=== PATIENT | female | born 1945 | race Caucasian/White ===

== ENCOUNTER 2016-09-22 07:45 | Day surgery (SDC) | payer MEDICARE, BC ==
[~2016-09-22 07:45] MED LIST: KETOROLAC TROMETHAMINE 0.45% 4 DROP/0.4 ML DROPERETTE OS PRN
[2016-09-22] MEDS ORDERED: EPINEPHRINE INJ/PF 1 MG/1 ML AMPULE ONE ×2 (07:56→09:21)
[2016-09-22] MEDS ORDERED: CHONDR SU A NA/HYALUR INTRAOC KIT (SURGICARE) ONE (07:57)
[2016-09-22] MEDS ORDERED: LIDOCAINE 1% INJ-PF (10 MG/ML) 30 ML SDV ONE (07:57)
[2016-09-22] MEDS: TETRACAINE HCL 0.5% OPH SOLN 2 ML OS PRN ×3 (08:16→08:59)
[2016-09-22] MEDS: CYCLOPENTOLATE 0.2%/PHENYLEPHRINE 1% OPH SOLN 2 ML OS PRN ×3 (08:17→08:42)
[2016-09-22] MEDS: TROPICAMIDE 1% OPH SOLN 3 ML OS PRN ×3 (08:18→08:43)
[2016-09-22] MEDS: BESIFLOXACIN HCL 0.6% OPH SUSP 5 ML BOTTLE OS PRN ×4 (08:19→09:38)
[2016-09-22] MEDS ORDERED: MIDAZOLAM 2 MG/2 ML INJ ONE (08:58)
[2016-09-22] MEDS ORDERED: CHONDR SU A NA/HYALUR SOD 0.5 ML DISP.SYRIN ONE (09:23)
[2016-09-22] MEDS ORDERED: FENTANYL CITRATE INJ/PF 100 MCG/2 ML AMPUL ONE (09:25)
--- NOTE | 2016-09-22 19:44 | [facility] OPERATIVE REPORT E ---
[facility] Operative Report NAME: CEFERINO TEIXEIRA AGE: 70Y DATE OF SURGERY: ROOM: PREOPERATIVE DIAGNOSIS: CATARACT, LEFT EYE. POSTOPERATIVE DIAGNOSIS: CATARACT, LEFT EYE. OPERATION: Cataract extraction with intraocular lens implant of the left eye. SURGEON: KEITH CERDA M.D. ANESTHESIA: Topical. PROCEDURE: After obtaining appropriate consent, the patient's left eye was prepped and draped in sterile fashion as well as the surgeon in a sterile manner and cataract surgery was started. First a paracentesis blade was used to make a small side-port incision. Viscoelastic was used to inflate the anterior chamber. Next a 2.4 mm incision was made with the paracentesis blade. A continuous capsulorrhexis incision was made using a cystotome and Utrata forceps. Following this hydrodissection was carried out to make the lens fully loose and mobile and it was rotated 90 degrees. Following this, a dvhohy-svl-xovskfm technique was used to phacoemulsify the lens with a CDE of 4.16. The remaining cortex was removed with irrigation/aspiration. Provisc was instilled into the capsular bag to inflate the bag. A SN60WF 24.0 diopter lens was placed. The remaining viscoelastic material was removed with irrigation/aspiration. Following this, a 10-0 nylon suture was used to close the incision and it was found to be watertight. Vigamox was instilled in the eye and a protective shield was placed over the eye. The patient returned to the postoperative recovery in stable condition. DICTATING PHYSICIAN: KEITH CERDA M.D. [id number] PHY#: [id number] ID: [id number] JOB#: [id number] ACCT: [id number] cc:KEITH CERDA M.D. >
--- NOTE | 2016-09-22 19:48 | [facility] DISCHARGE SUMMARY E ---
[facility] Discharge Summary NAME: CEFERINO TEIXEIRA AGE: 70Y ADMITTED: 09/22/2016 DISCHARGED: FINAL DIAGNOSIS: Cataract, left eye. HOSPITAL COURSE: This is a 70-year-old female who underwent cataract extraction of the left eye. She underwent surgery because she was having halos around headlights when driving at night. She is to be on a regular diet, no bending from the waist, no heavy lifting. She is to use Besivance, Ilevro, and Durezol at 3 p.m. and 8 p.m. and sleep with a rigid shield. I will see her for 1 day postoperative tomorrow. DICTATING PHYSICIAN: KEITH CERDA M.D. [id number] PHY#: [id number] ID: [id number] JOB#: [id number] ACCT: [id number] cc:KEITH CERDA M.D. >
== END 2016-09-22 10:44 | disposition home or self-care (01) ==
LOC: SC 07:45
PROVIDERS: ATTEND Internal Medicine
PROC: 08RK3JZ Replacement of Left Lens with Synthetic Substitute, Percutaneous Approach (ICD-10-PCS; principal; 2016-09-22 09:00)
DX: H25.13 Age-related nuclear cataract, bilateral (principal); H40.033 Anatomical narrow angle, bilateral; H43.811 Vitreous degeneration, right eye; E78.00 Pure hypercholesterolemia, unspecified; I10 Essential (primary) hypertension; D64.9 Anemia, unspecified; I49.9 Cardiac arrhythmia, unspecified; E07.9 Disorder of thyroid, unspecified; K21.9 Gastro-esophageal reflux disease without esophagitis; M81.0 Age-related osteoporosis without current pathological fracture; Z79.899 Other long term (current) drug therapy; Z94.0 Kidney transplant status
CPT/HCPCS: 66984; V2632; J2250; J3490 ×3; A9270; J0171; J3010; 142

== ENCOUNTER 2016-10-13 08:56 | Day surgery (SDC) | payer MEDICARE, BC ==
[~2016-10-13 08:56] MED LIST changes: +KETOROLAC TROMETHAMINE 0.45% 4 DROP/0.4 ML DROPERETTE OD PRN; -KETOROLAC TROMETHAMINE 0.45% 4 DROP/0.4 ML DROPERETTE OS PRN
[2016-10-13] MEDS: TETRACAINE HCL 0.5% OPH SOLN 2 ML OD PRN ×4 (09:07→09:40)
[2016-10-13] MEDS: TROPICAMIDE 1% OPH SOLN 3 ML OD PRN ×3 (09:08→09:30)
[2016-10-13] MEDS: CYCLOPENTOLATE 0.2%/PHENYLEPHRINE 1% OPH SOLN 2 ML OD PRN ×3 (09:08→09:30)
[2016-10-13] MEDS: BESIFLOXACIN HCL 0.6% OPH SUSP 5 ML BOTTLE OD PRN ×4 (09:09→10:08)
[2016-10-13] MEDS ORDERED: FENTANYL CITRATE INJ/PF 100 MCG/2 ML AMPUL ONE (09:31)
[2016-10-13] MEDS ORDERED: MIDAZOLAM 2 MG/2 ML INJ ONE (09:31)
[2016-10-13] MEDS: CHONDR SU A NA/HYALUR INTRAOC KIT (SURGICARE) ONE ×2 (09:52)
[2016-10-13] MEDS: EPINEPHRINE INJ/PF 1 MG/1 ML AMPULE ONE ×2 (09:52)
[2016-10-13] MEDS: LIDOCAINE 1% INJ-PF (10 MG/ML) 30 ML SDV ONE ×2 (09:52)
--- NOTE | 2016-10-14 07:14 | [facility] OPERATIVE REPORT E ---
[facility] Operative Report NAME: CEFERINO TEIXEIRA AGE: 70Y DATE OF SURGERY: 10/13/2016 ROOM: PREOPERATIVE DIAGNOSIS: Cataract, right eye. POSTOPERATIVE DIAGNOSIS: Cataract, right eye. OPERATION: Cataract extraction with intraocular lens implant of the right eye. SURGEON: KEITH CERDA M.D. ANESTHESIA: Topical. PROCEDURE: After obtaining appropriate consent, the patient's right eye was prepped and draped in sterile fashion as well as the surgeon in a sterile manner and cataract surgery was started. First a paracentesis blade was used to make a small side-port incision. Viscoelastic was used to inflate the anterior chamber. Next a 2.4 mm incision was made with the paracentesis blade. A continuous capsulorrhexis incision was made using a cystotome and Utrata forceps. Following this hydrodissection was carried out to make the lens fully loose and mobile and it was rotated 90 degrees. Following this, a mwygym-esi-zaiobkj technique was used to phacoemulsify the lens with a CDE of 20.64. The remaining cortex was removed with irrigation/aspiration. Provisc was instilled into the capsular bag to inflate the bag. A SN60WF, 24.0 diopter lens was placed. The remaining viscoelastic material was removed with irrigation/aspiration. Following this, a 10-0 nylon suture was used to close the incision and it was found to be watertight. Vigamox was instilled in the eye and a protective shield was placed over the eye. The patient returned to the postoperative recovery in stable condition. DICTATING PHYSICIAN: KEITH CERDA M.D. [id number] PHY#: [id number] ID: [id number] JOB#: [id number] ACCT: [id number] cc:KEITH CERDA M.D. >
--- NOTE | 2016-10-14 07:14 | [facility] DISCHARGE SUMMARY E ---
[facility] Discharge Summary NAME: CEFERINO TEIXEIRA AGE: 70Y ADMITTED: 10/13/2016 DISCHARGED: 10/13/2016 HISTORY OF PRESENT ILLNESS AND HOSPITAL COURSE: This is a 70-year-old female who underwent cataract extraction of the right eye. DIAGNOSIS: Cataract, right eye. HOSPITAL COURSE: She underwent surgery because she was having difficulty seeing words on the television. DISCHARGE INSTRUCTIONS: 1. She should be on a regular diet. 2. No bending at the waist and no heavy lifting. 3. She should use her Besivance, Ilevro, and Durezol at 3 p.m. and 8 p.m. and sleep with a rigid shield. 4. I will see her for her one-day postoperative tomorrow. DICTATING PHYSICIAN: KEITH CERDA M.D. [id number] PHY#: [id number] ID: [id number] JOB#: [id number] ACCT: [id number] cc:KEITH CERDA M.D. >
== END 2016-10-13 10:57 | disposition home or self-care (01) ==
LOC: SC 08:56
PROVIDERS: ATTEND Internal Medicine
PROC: 08RJ3JZ Replacement of Right Lens with Synthetic Substitute, Percutaneous Approach (ICD-10-PCS; principal; 2016-10-13 10:00)
DX: H25.11 Age-related nuclear cataract, right eye (principal); Z96.1 Presence of intraocular lens; K21.9 Gastro-esophageal reflux disease without esophagitis; I10 Essential (primary) hypertension; I49.9 Cardiac arrhythmia, unspecified; D64.9 Anemia, unspecified; Z79.899 Other long term (current) drug therapy
CPT/HCPCS: 66984; V2632; J2250; J3490 ×2; A9270; J0171; J3010; 142

== ENCOUNTER → 2016-11-18 | Outpatient (CLI) | payer MEDICARE, BC ==
[2016-11-18 13:39] LABS: APPEARANCE,URINE SLIGHTLY-CLOUDY; BILIRUBIN,URINE NEGATIVE (NEGATIVE); GLUCOSE, URINE NEGATIVE (NEGATIVE); KETONES,URINE NEGATIVE (NEGATIVE); LEUKOCYTE ESTERASE,URINE TRACE (NEGATIVE); NITRITE,URINE NEGATIVE (NEGATIVE); PROTEIN,URINE 100 mg/dL (NEGATIVE); URINE SPECIFIC GRAVITY 1.009; UROBILINOGEN,URINE NEGATIVE mg/dL (<2.0)
[2016-11-18 13:40] LABS: HEMATOCRIT 28.3 % (36.0-47.0); HEMOGLOBIN 9.4 g/dL (12.0-15.5); HGB HCT DIFFERENCE -0.1; MEAN CORPUSCULAR HEMOGLOBIN 31.4 pg (27.0-33.4); MEAN CORPUSCULAR HGB CONC 33.2 g/dL (32.0-36.0); MEAN CORPUSCULAR VOLUME 95 fl (80-97); RED BLOOD COUNT 2.99 10^6/uL (3.72-5.28); RED CELL DISTRIBUTION WIDTH 13.5 % (11.5-14.0); WHITE BLOOD COUNT 6.6 10^3/uL (4.0-10.5)
[2016-11-18 13:44] LABS: ALANINE AMINOTRANSFERASE 34 U/L (9-52); ALKALINE PHOSPHATASE 75 U/L (38-126); ANION GAP 13 (5-19); ASPARTATE AMINO TRANSFERASE 23 U/L (14-36); BILIRUBIN,DIRECT 0.3 mg/dL (0.0-0.4); BILIRUBIN,TOTAL 0.4 mg/dL (0.2-1.3); BLOOD UREA NITROGEN 37 mg/dL (7-20); CALCIUM 9.7 mg/dL (8.4-10.2); CARBON DIOXIDE 22 mmol/L (22-30); CHLORIDE 99 mmol/L (98-107); CREATININE RESULT 1.97 mg/dL (0.52-1.25); GLUCOSE 152 mg/dL (75-110); PHOSPHORUS 4.6 mg/dL (2.5-4.5); POTASSIUM 4.9 mmol/L (3.6-5.0); SODIUM 134.1 mmol/L (137-145); TOTAL PROTEIN 6.3 g/dL (6.3-8.2)
[2016-11-18 13:57] LABS: URINE CREATININE 138.5 mg/dL (15-278); URINE PROTEIN 171.9 mg/dL (<12)
[2016-11-18 14:15] LABS: BASOPHILS % (MANUAL) 0 % (0-2); EOSINOPHILS % (MANUAL) 1 % (0-6); LYMPHOCYTES % (MANUAL) 10 % (13-45); OVALOCYTES 1+; POIKILOCYTOSIS 1+; TOTAL CELLS COUNTED 100
[2016-11-18 14:16] LABS: HYPOCHROMASIA SLIGHT; POLYCHROMASIA SLIGHT; TOXIC GRANULATION SLIGHT
[2016-11-19 17:27] LABS: PTH INTACT 85 pg/mL (15-65)
[2016-11-21 16:38] LABS: A/G RATIO 1.1 (0.7-1.7); ALBUMIN 2 3.3 g/dL (2.9-4.4); ALPHA-1-GLOBULIN 2 0.3 g/dL (0.0-0.4); GAMMA GLOBULIN 0.7 g/dL (0.4-1.8); PROTEIN TOTAL SERUM 6.2 g/dL (6.0-8.5)
== END ==
LOC: OD 12:23
PROVIDERS: ATTEND Internal Medicine Nephrology
DX: N39.0 Urinary tract infection, site not specified (principal); Z48.22 Encounter for aftercare following kidney transplant; D64.9 Anemia, unspecified; I10 Essential (primary) hypertension
CPT/HCPCS: 36415; 80053; 81001; 82570; 82728; 83540; 83550; 83970; 84100; 84156; 84165; 85025; 87086

== ENCOUNTER → 2017-01-16 | Outpatient (CLI) | payer MEDICARE, BC ==
--- NOTE | 2017-01-16 15:46 | RADIOLOGY REPORT (SQ) ---
EXAM DESCRIPTION: BONE SURVEY COMPLETE COMPLETED DATE/TIME: 01/16/2017 2:36 pm REASON FOR STUDY: ANEMIA COMPARISON: None. TECHNIQUE: Images of the axial and proximal appendicular skeleton are obtained, along with lateral s kull and frontal chest films. LIMITATIONS: None. FINDINGS: AP CHEST: No bony findings. Lungs are clear. LATERAL SKULL: Solitary lytic lesion in the posterior skull. AP BOTH HUMERI: No worrisome bone lesions. TWO-VIEW LUMBAR SPINE: No worrisome bone lesions. TWO-VIEW THORACIC SPINE: No worrisome bone lesions. AP PELVIS: No worrisome bone lesions. AP BOTH FEMURS: No worrisome bone lesions. OTHER: No other significant finding. IMPRESSION: Solitary lytic skull lesion.
== END ==
LOC: RAD 13:59
PROVIDERS: ATTEND Internal Medicine Medical Oncology
DX: D64.9 Anemia, unspecified (principal); M89.8X8 Other specified disorders of bone, other site
CPT/HCPCS: 77075

== ENCOUNTER 2017-03-12 17:29 | Emergency (ER) | payer MEDICARE, BC ==
--- NOTE | 2017-03-12 18:04 | ER Document Report ---
ED Medical Screen (RME) - General Chief Complaint: Leg Swelling Stated Complaint: FOOT PAIN Time Seen by Provider: 03/12/17 17:42 Notes: This 71-year-old female patient comes emergency room complaining of feet and ankle swelling for the past month. She had a cadaver renal transplant in 2009. She reports the swelling comes on throughout the day and goes down during the night. She thinks it is because her kidney function is better at night and does not understand about gravity and hydrostatic pressures. Her doctor in [place] stopped her Synthroid over a month ago and she is not quite sure why. She has seen her primary care provider twice recently and has some outpatient lab work ordered prior to a visit to see Dr. Colin Henriquez next week. I have greeted and performed a rapid initial assessment of this patient. A comprehensive ED assessment and evaluation of the patient, analysis of test results and completion of the medical decision making process will be conducted by additional ED providers. TRAVEL OUTSIDE OF THE [place] IN LAST 30 DAYS: No - Related Data Allergies/Adverse Reactions: No Known Allergies Allergy (Verified 03/12/17 17:35) Past Medical History - Social History Chew tobacco use (# tins/day): No Frequency of alcohol use: None Drug Abuse: None - Past Medical History Cardiac Medical History: Reports: Hx Hypercholesterolemia, Hx Hypertension Denies: Hx Heart Attack Pulmonary Medical History: Denies: Hx Asthma Neurological Medical History: Reports: Hx Migraine. Denies: Hx Cerebrovascular Accident, Hx Seizures Renal/ Medical History: Denies: Hx Peritoneal Dialysis GI Medical History: Reports: Hx Gastroesophageal Reflux Disease, Hx Hiatal Hernia, Hx Ulcer - BLEEDING ULCER. Denies: Hx Hepatitis Psychiatric Medical History: Reports: Hx Anxiety, Hx Depression Infectious Medical History: Denies: Hx Hepatitis Past Surgical History: Reports: Hx Cholecystectomy, Hx Kidney (Renal Surgery) - kidney transplant, Hx Tubal Ligation. Denies: Hx Mastectomy, Hx Open Heart Surgery, Hx Pacemaker - Immunizations Immunizations up to date: Yes Hx Diphtheria, Pertussis, Tetanus Vaccination: No Physical Exam - Vital signs Vitals: Temp Pulse Resp BP Pulse Ox 98.9 F 69 16 189/76 H 98 03/12/17 17:35 03/12/17 17:35 03/12/17 17:35 03/12/17 17:35 03/12/17 17:35 Course - Vital Signs Vital signs: Temp Pulse Resp BP Pulse Ox 98.9 F 69 16 189/76 H 98 03/12/17 17:35 03/12/17 17:35 03/12/17 17:35 03/12/17 17:35 03/12/17 17:35
[2017-03-12 18:28] LABS: ABSOLUTE LYMPHOCYTES (AUTO) 0.6 10^3/uL (0.5-4.7); ABSOLUTE MONOCYTES (AUTO) 0.5 10^3/uL (0.1-1.4); ABSOLUTE NEUT (AUTO) 3.1 10^3/uL (1.7-8.2); BASOPHILS % (AUTO) 0.9 % (0-2); EOSINOPHILS % (AUTO) 0.3 % (0-6); HEMATOCRIT 28.4 % (36.0-47.0); HEMOGLOBIN 9.8 g/dL (12.0-15.5); LYMPHOCYTES % (AUTO) 14.8 % (13-45); MEAN CORPUSCULAR HEMOGLOBIN 32.7 pg (27.0-33.4); MEAN CORPUSCULAR HGB CONC 34.5 g/dL (32.0-36.0); MEAN CORPUSCULAR VOLUME 95 fl (80-97); MONOCYTES % (AUTO) 10.9 % (3-13); RED BLOOD COUNT 2.99 10^6/uL (3.72-5.28); RED CELL DISTRIBUTION WIDTH 13.2 % (11.5-14.0); SEGMENTED NEUTROPHILS % (AUTO) 73.1 % (42-78); WHITE BLOOD COUNT 4.2 10^3/uL (4.0-10.5)
[2017-03-12 18:33] LABS: APPEARANCE,URINE CLEAR; BILIRUBIN,URINE NEGATIVE (NEGATIVE); GLUCOSE, URINE NEGATIVE (NEGATIVE); KETONES,URINE NEGATIVE (NEGATIVE); LEUKOCYTE ESTERASE,URINE SMALL (NEGATIVE); NITRITE,URINE NEGATIVE (NEGATIVE); PROTEIN,URINE 100 mg/dL (NEGATIVE); URINE SPECIFIC GRAVITY 1.005; UROBILINOGEN,URINE NEGATIVE mg/dL (<2.0)
[2017-03-12 18:45] LABS: BLOOD UREA NITROGEN 32 mg/dL (7-20); CALCIUM 10.3 mg/dL (8.4-10.2); GLUCOSE 114 mg/dL (75-110)
[2017-03-12 18:46] LABS: ALANINE AMINOTRANSFERASE 28 U/L (9-52); ALBUMIN 4.6 g/dL (3.5-5.0); ALKALINE PHOSPHATASE 67 U/L (38-126); ANION GAP 12 (5-19); ASPARTATE AMINO TRANSFERASE 21 U/L (14-36); BILIRUBIN,DIRECT 0.3 mg/dL (0.0-0.4); BILIRUBIN,TOTAL 0.5 mg/dL (0.2-1.3); CARBON DIOXIDE 24 mmol/L (22-30); CHLORIDE 100 mmol/L (98-107); CHOLESTEROL 243.15 mg/dL (0-200); Direct HDL 60 mg/dL (>40); MAGNESIUM 1.9 mg/dL (1.6-2.3); SODIUM 136.2 mmol/L (137-145); TOTAL PROTEIN 7.1 g/dL (6.3-8.2); TRIGLYCERIDES 212 mg/dL (<150)
[2017-03-12 18:56] LABS: DIRECT LDL 126 mg/dL (<100)
[2017-03-12 18:57] LABS: VLDL CHOLESTEROL 42.4 mg/dL (10-31)
[2017-03-12 19:02] LABS: FREE T3 3.1 pg/mL (2.77-5.27)
[2017-03-12 19:15] LABS: THYROID STIMULATING HORMONE 2.78 uIU/mL (0.47-4.68)
--- NOTE | 2017-03-12 19:50 | ER Document Report ---
ED General - General Chief Complaint: Leg Swelling Stated Complaint: FOOT PAIN Time Seen by Provider: 03/12/17 17:42 Notes: Patient is a 71-year-old female with a past medical history of renal insufficiency, hypertension, hyperlipidemia, who presents with multitude of complaints. Her main concern is that she has chronic bilateral lower extremity edema that she states has been worse over the past 3-4 weeks. She has not tried anything to treat this edema. She has not noted anything seems to worsen other than standing for prolonged periods of time. She has not seen a primary care doctor regarding this concern. She also notes that she feels generally fatigued. She was diagnosed with a possible urinary tract infection and placed on ciprofloxacin but states that this has not resolved her fatigue or dysuria. She denies any fever or constitutional symptoms. No vomiting. She denies any chest pain or shortness of breath. TRAVEL OUTSIDE OF THE [place] IN LAST 30 DAYS: No - Related Data Allergies/Adverse Reactions: No Known Allergies Allergy (Verified 03/12/17 17:35) Past Medical History - General Information source: Patient - Social History Smoking Status: Never Smoker Chew tobacco use (# tins/day): No Frequency of alcohol use: None Drug Abuse: None Lives with: Family Family History: Hypertension - Past Medical History Cardiac Medical History: Reports: Hx Hypercholesterolemia, Hx Hypertension Denies: Hx Heart Attack Pulmonary Medical History: Denies: Hx Asthma Neurological Medical History: Reports: Hx Migraine. Denies: Hx Cerebrovascular Accident, Hx Seizures Renal/ Medical History: Denies: Hx Peritoneal Dialysis GI Medical History: Reports: Hx Gastroesophageal Reflux Disease, Hx Hiatal Hernia, Hx Ulcer - BLEEDING ULCER. Denies: Hx Hepatitis Psychiatric Medical History: Reports: Hx Anxiety, Hx Depression Infectious Medical History: Denies: Hx Hepatitis Past Surgical History: Reports: Hx Cholecystectomy, Hx Kidney (Renal Surgery) - kidney transplant, Hx Tubal Ligation. Denies: Hx Mastectomy, Hx Open Heart Surgery, Hx Pacemaker - Immunizations Immunizations up to date: Yes Hx Diphtheria, Pertussis, Tetanus Vaccination: No Hx Pneumococcal Vaccination: 05/22/13 Review of Systems - Review of Systems Notes: Constitutional: Negative for fever. Positive for generalized fatigue HENT: Negative for sore throat. Eyes: Negative for visual changes. Cardiovascular: Negative for chest pain. Respiratory: Negative for shortness of breath. Gastrointestinal: Negative for abdominal pain, vomiting or diarrhea. Genitourinary: Positive for dysuria. Musculoskeletal: Negative for back pain. Positive for bilateral lower extremity Skin: Negative for rash. Neurological: Negative for headaches, weakness or numbness. 10 point ROS negative except as marked above and in HPI. Physical Exam - Vital signs Vitals: Temp Pulse Resp BP Pulse Ox 98.9 F 69 16 189/76 H 98 03/12/17 17:35 03/12/17 17:35 03/12/17 17:35 03/12/17 17:35 03/12/17 17:35 Interpretation: Hypertensive Notes: PHYSICAL EXAMINATION: GENERAL: Well-appearing, well-nourished and in no acute distress. HEAD: Atraumatic, normocephalic. EYES: Pupils equal round and reactive to light, extraocular movements intact, sclera anicteric, conjunctiva are normal. ENT: nares patent, oropharynx clear without exudates. Moderately dry mucous membranes. NECK: Normal range of motion, supple without lymphadenopathy LUNGS: Breath sounds clear to auscultation bilaterally and equal. No wheezes rales or rhonchi. HEART: Regular rate and rhythm without murmurs ABDOMEN: Soft, nontender, normoactive bowel sounds. No guarding, no rebound. No masses appreciated. EXTREMITIES: Normal range of motion, 1+ pitting edema in the bilateral lower extremities that is equal and symmetric NEUROLOGICAL: No focal neurological deficits. Moves all extremities spontaneously and on command. PSYCH: Normal mood, normal affect. SKIN: Warm, Dry, normal turgor, no rashes or lesions noted. Course - Re-evaluation Re-evalutation: 03/12/17 19:47 Patient presents with multiple vague complaints that did not appear to be concerning for any acute life-threatening pathology. Vitals are within normal limits at triage and at time of discharge. Physical examination is unremarkable. Patient has tolerated oral intake without difficulty. Patient was not noted to be in distress at any point during their ER visit. At this time, based on the reassuring evaluation, I do not suspect an acute SD, pulmonary embolus, aortic dissection, acute intra-abdominal pathology, stroke, or sepsis. Patient's urinalysis does show findings consistent with an acute urinary tract infection which may be part of her generalized malaise. The urine culture has been sent. She will be started on cephalexin. Have also added on a urine creatinine and protein so the patient does not have a follow- up for laboratories as an outpatient. Will discharge with return precautions and follow-up recommendations. Verbal discharge instructions given a the bedside and opportunity for questions given. Medication warnings reviewed. Patient is in agreement with this plan and has verbalized understanding of return precautions and the need for primary care follow-up in the next 24-72 hours. - Vital Signs Vital signs: Temp Pulse Resp BP Pulse Ox 98.6 F 71 18 150/85 H 98 03/12/17 20:14 03/12/17 20:14 03/12/17 20:14 03/12/17 20:14 03/12/17 20:14 - Laboratory Result Diagrams: 03/12/17 18:10 03/12/17 18:10 Laboratory results interpreted by me: 03/12/17 03/12/17 03/12/17 18:10 18:10 18:10 RBC 2.99 L Hgb 9.8 L Hct 28.4 L Sodium 136.2 L BUN 32 H Creatinine 1.60 H Est GFR ( Amer) 39 L Est GFR (Non-Af Amer) 32 L Glucose 114 H Calcium 10.3 H Triglycerides 212 H Cholesterol 243.15 H LDL Cholesterol Direct 126 H VLDL Cholesterol 42.4 H Urine Protein 100 H Ur Leukocyte Esterase SMALL H Urine Total Protein 03/12/17 18:10 RBC Hgb Hct Sodium BUN Creatinine Est GFR ( Amer) Est GFR (Non-Af Amer) Glucose Calcium Triglycerides Cholesterol LDL Cholesterol Direct VLDL Cholesterol Urine Protein Ur Leukocyte Esterase Urine Total Protein 107.5 H Discharge - Discharge Clinical Impression: UTI (urinary tract infection), bacterial, Hyponatremia, Dehydration Condition: Good Disposition: HOME, SELF-CARE Additional Instructions: Your urine shows findings consistent with a urinary tract infection. Please take all the antibiotics as directed even if your symptoms have improved. Please follow-up with your primary care physician as needed. Return to emergency room if you develop fever >101F, persistent vomiting, become lethargic , have severe pain in your sides, or any other symptoms that are concerning to you. Prescriptions: Cephalexin Monohydrate [Keflex 500 mg Capsule] 500 mg PO Q6H 5 Days capsule Referrals: ALFONSO WELCH MD [Primary Care Provider] - Follow up as needed
[2017-03-12 20:09] LABS: URINE CREATININE 82.3 mg/dL (15-278); URINE PROTEIN 107.5 mg/dL (<12)
[2017-03-12 20:16] VITALS: BP 150/85
== END 2017-03-12 20:15 | disposition home or self-care (01) ==
LOC: ER 17:29
DX: N39.0 Urinary tract infection, site not specified (principal); B96.89 Other specified bacterial agents as the cause of diseases classified elsewhere; E87.1 Hypo-osmolality and hyponatremia; E86.0 Dehydration; M79.673 Pain in unspecified foot; M79.89 Other specified soft tissue disorders
CPT/HCPCS: 36415; 80053; 80061; 81001; 82570; 83735; 84156; 84439; 84443; 84481; 85025; 87086; 99283

== ENCOUNTER → 2017-04-20 | Outpatient (CLI) | payer MEDICARE, BC ==
[2017-04-20 09:42] LABS: ABSOLUTE EOSINOPHILS # (AUTO) 0.1 10^3/uL (0.0-0.6); ABSOLUTE LYMPHOCYTES (AUTO) 0.5 10^3/uL (0.5-4.7); ABSOLUTE MONOCYTES (AUTO) 0.6 10^3/uL (0.1-1.4); ABSOLUTE NEUT (AUTO) 3.3 10^3/uL (1.7-8.2); BASOPHILS % (AUTO) 0.6 % (0-2); EOSINOPHILS % (AUTO) 1.1 % (0-6); HEMOGLOBIN 9.8 g/dL (12.0-15.5); HGB HCT DIFFERENCE 1.4; LYMPHOCYTES % (AUTO) 11.8 % (13-45); MEAN CORPUSCULAR HEMOGLOBIN 32.8 pg (27.0-33.4); MEAN CORPUSCULAR VOLUME 94 fl (80-97); MONOCYTES % (AUTO) 13.1 % (3-13); RED BLOOD COUNT 2.98 10^6/uL (3.72-5.28); RED CELL DISTRIBUTION WIDTH 13.2 % (11.5-14.0); SEGMENTED NEUTROPHILS % (AUTO) 73.4 % (42-78); WHITE BLOOD COUNT 4.6 10^3/uL (4.0-10.5)
[2017-04-20 10:00] LABS: APPEARANCE,URINE CLEAR; BILIRUBIN,URINE NEGATIVE (NEGATIVE); GLUCOSE, URINE NEGATIVE (NEGATIVE); KETONES,URINE NEGATIVE (NEGATIVE); LEUKOCYTE ESTERASE,URINE NEGATIVE (NEGATIVE); NITRITE,URINE NEGATIVE (NEGATIVE); PROTEIN,URINE 100 mg/dL (NEGATIVE); URINE SPECIFIC GRAVITY 1.005; UROBILINOGEN,URINE NEGATIVE mg/dL (<2.0)
[2017-04-20 10:49] LABS: ANION GAP 9 (5-19); BLOOD UREA NITROGEN 26 mg/dL (7-20); CARBON DIOXIDE 25 mmol/L (22-30); CHLORIDE 100 mmol/L (98-107); CREATININE RESULT 1.43 mg/dL (0.52-1.25); GLUCOSE 85 mg/dL (75-110); POTASSIUM 5.6 mmol/L (3.6-5.0); SODIUM 134.3 mmol/L (137-145)
[2017-04-20 10:56] LABS: URINE CREATININE 59.7 mg/dL (15-278); URINE PROTEIN 108.5 mg/dL (<12)
== END ==
LOC: OD 08:26
PROVIDERS: ATTEND Internal Medicine Nephrology
DX: N18.2 Chronic kidney disease, stage 2 (mild) (principal); D64.9 Anemia, unspecified; R80.9 Proteinuria, unspecified
CPT/HCPCS: 36415; 80048; 80197; 81001; 82570; 82728; 83540; 83550; 84156; 85025

== ENCOUNTER → 2017-04-24 | Outpatient (CLI) | payer MEDICARE, BC | LOC: OD 10:03 | PROVIDERS: ATTEND Physician Assistant Medical | DX: E87.5 Hyperkalemia (principal) | CPT/HCPCS: 36415; 84132 ==

== ENCOUNTER → 2017-05-01 | Outpatient (CLI) | payer MEDICARE, BC ==
[2017-05-01 11:16] LABS: ABSOLUTE LYMPHOCYTES (AUTO) 0.4 10^3/uL (0.5-4.7); ABSOLUTE MONOCYTES (AUTO) 0.4 10^3/uL (0.1-1.4); ABSOLUTE NEUT (AUTO) 3.7 10^3/uL (1.7-8.2); BASOPHILS % (AUTO) 0.5 % (0-2); EOSINOPHILS % (AUTO) 0.9 % (0-6); HEMATOCRIT 28.9 % (36.0-47.0); HEMOGLOBIN 9.8 g/dL (12.0-15.5); HGB HCT DIFFERENCE 0.5; LYMPHOCYTES % (AUTO) 8.8 % (13-45); MEAN CORPUSCULAR HEMOGLOBIN 32.3 pg (27.0-33.4); MEAN CORPUSCULAR HGB CONC 34.1 g/dL (32.0-36.0); MEAN CORPUSCULAR VOLUME 95 fl (80-97); MONOCYTES % (AUTO) 8.5 % (3-13); RED BLOOD COUNT 3.04 10^6/uL (3.72-5.28); RED CELL DISTRIBUTION WIDTH 13.5 % (11.5-14.0); SEGMENTED NEUTROPHILS % (AUTO) 81.3 % (42-78); WHITE BLOOD COUNT 4.6 10^3/uL (4.0-10.5)
[2017-05-01 11:43] LABS: ALANINE AMINOTRANSFERASE 26 U/L (9-52); ALBUMIN 4.4 g/dL (3.5-5.0); ALKALINE PHOSPHATASE 65 U/L (38-126); ANION GAP 11 (5-19); ASPARTATE AMINO TRANSFERASE 21 U/L (14-36); BILIRUBIN,DIRECT 0.4 mg/dL (0.0-0.4); BILIRUBIN,TOTAL 0.7 mg/dL (0.2-1.3); BLOOD UREA NITROGEN 31 mg/dL (7-20); CALCIUM 10.5 mg/dL (8.4-10.2); CARBON DIOXIDE 25 mmol/L (22-30); CHLORIDE 101 mmol/L (98-107); CHOLESTEROL 243.53 mg/dL (0-200); CREATININE RESULT 1.49 mg/dL (0.52-1.25); Direct HDL 57 mg/dL (>40); GLUCOSE 107 mg/dL (75-110); POTASSIUM 4.9 mmol/L (3.6-5.0); SODIUM 137.1 mmol/L (137-145); TOTAL PROTEIN 6.7 g/dL (6.3-8.2); TRIGLYCERIDES 224 mg/dL (<150)
[2017-05-01 11:54] LABS: DIRECT LDL 128 mg/dL (<100)
[2017-05-01 12:03] LABS: VLDL CHOLESTEROL 44.8 mg/dL (10-31)
[2017-05-01 12:12] LABS: THYROID STIMULATING HORMONE 3.93 uIU/mL (0.47-4.68)
== END ==
LOC: OD 10:37
PROVIDERS: ATTEND Physician Assistant
DX: E03.9 Hypothyroidism, unspecified (principal); E78.2 Mixed hyperlipidemia; D63.1 Anemia in chronic kidney disease
CPT/HCPCS: 36415; 80053; 80061; 84439; 84443; 85025

== ENCOUNTER 2017-07-02 16:33 | Emergency (ER) | payer MEDICARE, BC ==
--- NOTE | 2017-07-02 17:26 | ER Document Report ---
ED Medical Screen (RME) - General Chief Complaint: Fever Stated Complaint: FEVER Time Seen by Provider: 07/02/17 17:25 Mode of Arrival: Ambulatory Information source: Patient TRAVEL OUTSIDE OF THE [place] IN LAST 30 DAYS: No - HPI Patient complains to provider of: fever Onset: Yesterday - pt with c/o fever and not feeling well - Related Data Allergies/Adverse Reactions: No Known Allergies Allergy (Verified 07/02/17 16:34) Past Medical History - Past Medical History Cardiac Medical History: Reports: Hx Hypercholesterolemia, Hx Hypertension Denies: Hx Heart Attack Pulmonary Medical History: Denies: Hx Asthma Neurological Medical History: Reports: Hx Migraine. Denies: Hx Cerebrovascular Accident, Hx Seizures Renal/ Medical History: Denies: Hx Peritoneal Dialysis GI Medical History: Reports: Hx Gastroesophageal Reflux Disease, Hx Hiatal Hernia, Hx Ulcer - BLEEDING ULCER. Denies: Hx Hepatitis Psychiatric Medical History: Reports: Hx Anxiety, Hx Depression Infectious Medical History: Denies: Hx Hepatitis Past Surgical History: Reports: Hx Cholecystectomy, Hx Kidney (Renal Surgery) - kidney transplant, Hx Tubal Ligation. Denies: Hx Mastectomy, Hx Open Heart Surgery, Hx Pacemaker - Immunizations Immunizations up to date: Yes Hx Diphtheria, Pertussis, Tetanus Vaccination: No Physical Exam - Vital signs Vitals: Temp Pulse Resp BP Pulse Ox 99.2 F 80 24 H 169/70 H 97 07/02/17 16:40 07/02/17 16:40 07/02/17 16:40 07/02/17 16:40 07/02/17 16:40 Course - Vital Signs Vital signs: Temp Pulse Resp BP Pulse Ox 99.2 F 80 24 H 169/70 H 97 07/02/17 16:40 07/02/17 16:40 07/02/17 16:40 07/02/17 16:40 07/02/17 16:40
[2017-07-02 18:14] LABS: ABSOLUTE LYMPHOCYTES (AUTO) 0.3 10^3/uL (0.5-4.7); ABSOLUTE MONOCYTES (AUTO) 0.5 10^3/uL (0.1-1.4); ABSOLUTE NEUT (AUTO) 4.4 10^3/uL (1.7-8.2); BASOPHILS % (AUTO) 0.4 % (0-2); HEMATOCRIT 27.8 % (36.0-47.0); HEMOGLOBIN 9.4 g/dL (12.0-15.5); LYMPHOCYTES % (AUTO) 6.2 % (13-45); MEAN CORPUSCULAR HEMOGLOBIN 31.6 pg (27.0-33.4); MEAN CORPUSCULAR HGB CONC 33.9 g/dL (32.0-36.0); MEAN CORPUSCULAR VOLUME 93 fl (80-97); MONOCYTES % (AUTO) 8.9 % (3-13); PLATELET COUNT 312 10^3/uL (150-450); RED BLOOD COUNT 2.99 10^6/uL (3.72-5.28); RED CELL DISTRIBUTION WIDTH 13.3 % (11.5-14.0); SEGMENTED NEUTROPHILS % (AUTO) 84.5 % (42-78); TOTAL CELLS COUNTED % (AUTO) 100 %; WHITE BLOOD COUNT 5.3 10^3/uL (4.0-10.5)
[2017-07-02 18:19] LABS: APPEARANCE,URINE SLIGHTLY-CLOUDY; BILIRUBIN,URINE NEGATIVE (NEGATIVE); COLOR,URINE YELLOW; GLUCOSE, URINE 50 mg/dL (NEGATIVE); KETONES,URINE NEGATIVE (NEGATIVE); LEUKOCYTE ESTERASE,URINE SMALL (NEGATIVE); NITRITE,URINE NEGATIVE (NEGATIVE); PROTEIN,URINE >=500 mg/dL (NEGATIVE); URINE SPECIFIC GRAVITY 1.013; UROBILINOGEN,URINE NEGATIVE mg/dL (<2.0)
[2017-07-02 18:30] LABS: ALANINE AMINOTRANSFERASE 23 U/L (9-52); ALBUMIN 4.2 g/dL (3.5-5.0); ALKALINE PHOSPHATASE 76 U/L (38-126); ANION GAP 11 (5-19); ASPARTATE AMINO TRANSFERASE 19 U/L (14-36); BILIRUBIN,DIRECT 0.1 mg/dL (0.0-0.4); BILIRUBIN,TOTAL 0.3 mg/dL (0.2-1.3); BLOOD UREA NITROGEN 23 mg/dL (7-20); CALCIUM 9.9 mg/dL (8.4-10.2); CARBON DIOXIDE 24 mmol/L (22-30); CHLORIDE 98 mmol/L (98-107); GLUCOSE 154 mg/dL (75-110); POTASSIUM 4.6 mmol/L (3.6-5.0); SODIUM 132.5 mmol/L (137-145); TOTAL PROTEIN 6.1 g/dL (6.3-8.2)
--- NOTE | 2017-07-02 18:30 | RADIOLOGY REPORT (SQ) ---
EXAM DESCRIPTION: CHEST PA/LAT COMPLETED DATE/TIME: 07/02/2017 6:21 pm REASON FOR STUDY: fever COMPARISON: 03/06/2015 EXAM PARAMETERS: NUMBER OF VIEWS: two views TECHNIQUE: Digital Frontal and Lateral radiographic views of the chest acquired. RADIATION DOSE: NA LIMITATIONS: none FINDINGS: LUNGS AND PLEURA: No opacities, masses or pneumothorax. No pleural effusion. MEDIASTINUM AND HILAR STRUCTURES: No masses or contour abnormalities. HEART AND VASCULAR STRUCTURES: Heart normal size. No evidence for failure. BONES: No acute findings. HARDWARE: None in the chest. OTHER: No other significant finding. IMPRESSION: NO SIGNIFICANT RADIOGRAPHIC FINDING IN THE CHEST. TECHNICAL DOCUMENTATION: JOB ID: [id number] [employer]- All Rights Reserved
--- NOTE | 2017-07-02 19:16 | ER Document Report ---
ED General - General Mode of Arrival: Ambulatory Information source: Patient TRAVEL OUTSIDE OF THE [place] IN LAST 30 DAYS: No <WILLIE THACKER - Last Filed: 07/02/17 23:41> <JOSE JEFFREY - Last Filed: 07/02/17 23:51> - General Chief Complaint: Fever Stated Complaint: FEVER Time Seen by Provider: 07/02/17 17:25 Notes: Patient is a 71-year-old female who presents to the emergency department today with complaints of "fevers off and on for 1 month". Patient states her fevers are generally in the 99 F range, never getting above 100.4 F. Patient is status post kidney transplant in 1998 and refers to her "renal function tests" several times. Patient mentions that she has been to several doctors recently and no one has checked her renal function, stating the last time she had it checked was one month ago. Patient was started on 250 mg of Cipro twice daily yesterday by urgent care for an unknown bacterial infection. Patient admits to intermittent chills. (WILLIE THACKER) - Related Data Allergies/Adverse Reactions: No Known Allergies Allergy (Verified 07/02/17 16:34) Past Medical History - General Information source: Patient - Social History Smoking Status: Never Smoker Cigarette use (# per day): No Chew tobacco use (# tins/day): No Frequency of alcohol use: None Drug Abuse: None Lives with: Family Family History: Hypertension Patient has suicidal ideation: No Patient has homicidal ideation: No - Past Medical History Cardiac Medical History: Reports: Hx Hypercholesterolemia, Hx Hypertension Neurological Medical History: Reports: Hx Migraine GI Medical History: Reports: Hx Gastroesophageal Reflux Disease, Hx Hiatal Hernia, Hx Ulcer - BLEEDING ULCER Psychiatric Medical History: Reports: Hx Anxiety, Hx Depression Past Surgical History: Reports: Hx Cholecystectomy, Hx Kidney (Renal Surgery) - kidney transplant, Hx Tubal Ligation - Immunizations Immunizations up to date: Yes Hx Diphtheria, Pertussis, Tetanus Vaccination: No Hx Pneumococcal Vaccination: 05/22/13 <WILLIE THACKER - Last Filed: 07/02/17 23:41> Review of Systems - Review of Systems Constitutional: See HPI, Chills, Fever EENT: No symptoms reported Cardiovascular: No symptoms reported Respiratory: No symptoms reported Gastrointestinal: No symptoms reported Genitourinary: No symptoms reported Female Genitourinary: No symptoms reported Musculoskeletal: No symptoms reported Skin: No symptoms reported Hematologic/Lymphatic: No symptoms reported Neurological/Psychological: No symptoms reported <WILLIE THACKER - Last Filed: 07/02/17 23:41> Physical Exam <WILLIE THACKER - Last Filed: 07/02/17 23:41> <JOSE JEFFREY - Last Filed: 07/02/17 23:51> - Vital signs Vitals: Temp Pulse Resp BP Pulse Ox 99.2 F 80 24 H 169/70 H 97 07/02/17 16:40 07/02/17 16:40 07/02/17 16:40 07/02/17 16:40 07/02/17 16:40 - Notes Notes: PHYSICAL EXAM GENERAL: Alert, interacts well. No acute distress. HEAD: Normocephalic, atraumatic. EYES: Pupils equal, round, and reactive to light. Extraocular movements intact. Right eye conjunctival injection. ENT: Oral mucosa moist, tongue midline. NECK: Full range of motion. Supple. Trachea midline. LUNGS: Clear to auscultation bilaterally, no wheezes, rales, or rhonchi. No respiratory distress. HEART: Regular rate and rhythm. No murmurs, gallops, or rubs. ABDOMEN: Soft, non-tender. Non-distended. Bowel sounds present in all 4 quadrants. EXTREMITIES: Moves all 4 extremities spontaneously. Trace edema, radial and dorsalis pedis pulses 2/4 bilaterally. No cyanosis. NEUROLOGICAL: Alert and oriented x3. Normal speech. PSYCH: Normal affect, normal mood. SKIN: Warm, dry, normal turgor. No rashes or lesions noted. (WILLIE THACKER) Course - Laboratory Result Diagrams: 07/02/17 18:02 07/02/17 18:02 <WILLIE THACKER - Last Filed: 07/02/17 23:41> - Laboratory Result Diagrams: 07/02/17 18:02 07/02/17 18:02 <JOSE JEFFREY - Last Filed: 07/02/17 23:51> - Re-evaluation Re-evalutation: 07/02/17 19:17 CBC shows chronic anemia with hemoglobin 9.4, no left shift, CMP shows chronic renal failure not significantly changed from blood work performed in May, urinalysis shows small leukocyte esterase, 36 WBCs, 1 squamous epithelial cell and trace bacteria. Patient is already on ciprofloxacin from urgent care. I do not actually think this represents infection however I will leave her on her current antibiotic, do not recommend adding any other antibiotics and this urine will be sent for culture. Chest x-ray is unremarkable. Patient was provided with a copy of her blood work and discharged to home. 07/02/17 19:18 Of note the patient has never had an actual fever over the past month. She has never exceeded 100.4. 07/02/17 23:51 Denies dysuria or flank pain. (JOSE JEFFREY) - Vital Signs Vital signs: Temp Pulse Resp BP Pulse Ox 99.2 F 77 18 183/79 H 98 07/02/17 16:40 07/02/17 19:36 07/02/17 19:36 07/02/17 19:36 07/02/17 19:36 - Laboratory Laboratory results interpreted by me: 07/02/17 07/02/17 07/02/17 18:02 18:02 18:02 RBC 2.99 L Hgb 9.4 L Hct 27.8 L Seg Neutrophils % 84.5 H Lymphocytes % 6.2 L Absolute Lymphocytes 0.3 L Sodium 132.5 L BUN 23 H Creatinine 2.11 H Est GFR ( Amer) 28 L Est GFR (Non-Af Amer) 23 L Glucose 154 H Total Protein 6.1 L Urine Protein >=500 H Urine Glucose (UA) 50 H Ur Leukocyte Esterase SMALL H Urine Ascorbic Acid 20 H Discharge <WILLIE THACKER - Last Filed: 07/02/17 23:41> <JOSE JEFFREY - Last Filed: 07/02/17 23:51> - Discharge Clinical Impression: CKD (chronic kidney disease) stage 4, GFR 15-29 ml/min HTN (hypertension) Qualifiers: Hypertension type: renovascular hypertension Qualified Code(s): I15.0 - Renovascular hypertension Condition: Stable Disposition: HOME, SELF-CARE Scribe Attestation: 07/02/17 23:51 I personally performed the services described in the documentation, reviewed and edited the documentation which was dictated to the scribe in my presence, and it accurately records my words and actions. (JOSE JEFFREY) Scribe Documentation - Scribe Written by Scribe:: Cecilia Briseno, 07/02/2017 1936 acting as scribe for :: [place] <WILLIE THACKER - Last Filed: 07/02/17 23:41>
[2017-07-02 19:37] VITALS: BP 183/79
== END 2017-07-02 19:37 | disposition home or self-care (01) ==
LOC: ER 16:33
DX: A49.9 Bacterial infection, unspecified (principal); R50.9 Fever, unspecified; I12.9 Hypertensive chronic kidney disease with stage 1 through stage 4 chronic kidney disease, or unspecified chronic kidney disease; N18.3 Chronic kidney disease, stage 3 (moderate); Z94.0 Kidney transplant status
CPT/HCPCS: 36415; 71046; 80053; 81001; 85025; 87086; 87088; 87186; 99284

== ENCOUNTER → 2017-07-21 | Outpatient (CLI) | payer MEDICARE, BC ==
[2017-07-21 10:07] LABS: APPEARANCE,URINE CLEAR; BILIRUBIN,URINE NEGATIVE (NEGATIVE); COLOR,URINE STRAW; GLUCOSE, URINE NEGATIVE (NEGATIVE); KETONES,URINE NEGATIVE (NEGATIVE); LEUKOCYTE ESTERASE,URINE TRACE (NEGATIVE); NITRITE,URINE NEGATIVE (NEGATIVE); PROTEIN,URINE 100 mg/dL (NEGATIVE); URINE SPECIFIC GRAVITY 1.005; UROBILINOGEN,URINE NEGATIVE mg/dL (<2.0)
[2017-07-21 10:08] LABS: ABSOLUTE LYMPHOCYTES (AUTO) 0.5 10^3/uL (0.5-4.7); ABSOLUTE MONOCYTES (AUTO) 0.6 10^3/uL (0.1-1.4); ABSOLUTE NEUT (AUTO) 3.1 10^3/uL (1.7-8.2); BASOPHILS % (AUTO) 0.7 % (0-2); EOSINOPHILS % (AUTO) 1.1 % (0-6); HEMATOCRIT 28.4 % (36.0-47.0); HEMOGLOBIN 9.7 g/dL (12.0-15.5); LYMPHOCYTES % (AUTO) 12.5 % (13-45); MEAN CORPUSCULAR HEMOGLOBIN 31.7 pg (27.0-33.4); MEAN CORPUSCULAR HGB CONC 34.1 g/dL (32.0-36.0); MEAN CORPUSCULAR VOLUME 93 fl (80-97); MONOCYTES % (AUTO) 13.8 % (3-13); PLATELET COUNT 223 10^3/uL (150-450); RED BLOOD COUNT 3.06 10^6/uL (3.72-5.28); RED CELL DISTRIBUTION WIDTH 13.7 % (11.5-14.0); SEGMENTED NEUTROPHILS % (AUTO) 71.9 % (42-78); TOTAL CELLS COUNTED % (AUTO) 100 %; WHITE BLOOD COUNT 4.3 10^3/uL (4.0-10.5)
[2017-07-21 10:41] LABS: ALANINE AMINOTRANSFERASE 25 U/L (9-52); ALBUMIN 3.7 g/dL (3.5-5.0); ALKALINE PHOSPHATASE 55 U/L (38-126); ANION GAP 8 (5-19); ASPARTATE AMINO TRANSFERASE 18 U/L (14-36); BILIRUBIN,DIRECT 0.2 mg/dL (0.0-0.4); BILIRUBIN,TOTAL 0.5 mg/dL (0.2-1.3); BLOOD UREA NITROGEN 21 mg/dL (7-20); CALCIUM 9.9 mg/dL (8.4-10.2); CARBON DIOXIDE 25 mmol/L (22-30); CHLORIDE 100 mmol/L (98-107); GLUCOSE 93 mg/dL (75-110); POTASSIUM 5.3 mmol/L (3.6-5.0); SODIUM 133.4 mmol/L (137-145); TOTAL PROTEIN 5.7 g/dL (6.3-8.2)
[2017-07-21 11:01] LABS: URINE CREATININE 71.5 mg/dL (15-278)
[2017-07-21 11:10] LABS: UR PRO/CREAT RATIO RESULT 4.2 mg/mg (0.0-0.2); URINE PROTEIN 303.3 mg/dL (<12)
== END ==
LOC: OD 09:20
PROVIDERS: ATTEND Internal Medicine Nephrology
DX: N18.3 Chronic kidney disease, stage 3 (moderate) (principal); R80.9 Proteinuria, unspecified; E87.5 Hyperkalemia; D64.9 Anemia, unspecified
CPT/HCPCS: 36415; 80053; 81001; 82570; 84156; 85025

== ENCOUNTER → 2017-09-26 | Outpatient (CLI) | payer MEDICARE, BC ==
[2017-09-26 11:51] LABS: ABSOLUTE EOSINOPHILS # (AUTO) 0.1 10^3/uL (0.0-0.6); ABSOLUTE LYMPHOCYTES (AUTO) 0.7 10^3/uL (0.5-4.7); ABSOLUTE MONOCYTES (AUTO) 0.6 10^3/uL (0.1-1.4); ABSOLUTE NEUT (AUTO) 3.4 10^3/uL (1.7-8.2); BASOPHILS % (AUTO) 0.6 % (0-2); EOSINOPHILS % (AUTO) 1.4 % (0-6); HEMATOCRIT 29.4 % (36.0-47.0); HEMOGLOBIN 9.9 g/dL (12.0-15.5); LYMPHOCYTES % (AUTO) 14.4 % (13-45); MEAN CORPUSCULAR HEMOGLOBIN 31.4 pg (27.0-33.4); MEAN CORPUSCULAR HGB CONC 33.6 g/dL (32.0-36.0); MEAN CORPUSCULAR VOLUME 93 fl (80-97); MONOCYTES % (AUTO) 12.5 % (3-13); PLATELET COUNT 215 10^3/uL (150-450); RED BLOOD COUNT 3.14 10^6/uL (3.72-5.28); RED CELL DISTRIBUTION WIDTH 14.2 % (11.5-14.0); SEGMENTED NEUTROPHILS % (AUTO) 71.1 % (42-78); TOTAL CELLS COUNTED % (AUTO) 100 %; WHITE BLOOD COUNT 4.8 10^3/uL (4.0-10.5)
[2017-09-26 11:55] LABS: APPEARANCE,URINE CLEAR; BILIRUBIN,URINE NEGATIVE (NEGATIVE); COLOR,URINE YELLOW; GLUCOSE, URINE NEGATIVE (NEGATIVE); KETONES,URINE NEGATIVE (NEGATIVE); LEUKOCYTE ESTERASE,URINE TRACE (NEGATIVE); NITRITE,URINE NEGATIVE (NEGATIVE); PROTEIN,URINE >=500 mg/dL (NEGATIVE); URINE SPECIFIC GRAVITY 1.007; UROBILINOGEN,URINE NEGATIVE mg/dL (<2.0)
[2017-09-26 12:07] LABS: URINE CREATININE 49.9 mg/dL (15-278)
[2017-09-26 12:07] LABS: ALANINE AMINOTRANSFERASE 21 U/L (9-52); ALBUMIN 3.9 g/dL (3.5-5.0); ALKALINE PHOSPHATASE 64 U/L (38-126); ANION GAP 10 (5-19); ASPARTATE AMINO TRANSFERASE 19 U/L (14-36); BILIRUBIN,DIRECT 0.2 mg/dL (0.0-0.4); BILIRUBIN,TOTAL 0.5 mg/dL (0.2-1.3); BLOOD UREA NITROGEN 30 mg/dL (7-20); CALCIUM 10.1 mg/dL (8.4-10.2); CARBON DIOXIDE 25 mmol/L (22-30); CHLORIDE 102 mmol/L (98-107); GLUCOSE 90 mg/dL (75-110); PHOSPHORUS 4.2 mg/dL (2.5-4.5); POTASSIUM 5.1 mmol/L (3.6-5.0); SODIUM 136.7 mmol/L (137-145); TOTAL PROTEIN 6.3 g/dL (6.3-8.2)
[2017-09-26 12:18] LABS: UR PRO/CREAT RATIO RESULT 6.9 mg/mg (0.0-0.2)
== END ==
LOC: OD 10:59
PROVIDERS: ATTEND Internal Medicine Nephrology
DX: I12.9 Hypertensive chronic kidney disease with stage 1 through stage 4 chronic kidney disease, or unspecified chronic kidney disease (principal); N18.3 Chronic kidney disease, stage 3 (moderate); R80.9 Proteinuria, unspecified; E87.5 Hyperkalemia
CPT/HCPCS: 36415; 80053; 80197; 81001; 82570; 83970; 84100; 84156; 85025

== ENCOUNTER 2017-11-19 14:06 | Inpatient (IN) | payer MEDICARE, BC ==
--- NOTE | 2017-11-19 14:45 | ER Document Report ---
ED General - General Chief Complaint: Fever Stated Complaint: FEVER Time Seen by Provider: 11/19/17 14:25 Mode of Arrival: Ambulatory Information source: Patient Notes: 72-year-old female presents emergency department with complaints of having slurred speech. She states that it started 3 days ago. She's also had difficulty ambulating secondary to right lower extremity weakness. Patient states that she is on aspirin but denies any blood thinners. Patient denies a previous history of stroke or TIA. Patient denies any chest pain, shortness of breath, abdominal pain, nausea, vomiting. Patient states that she does have a history of a kidney transplant 5 years ago done at [place]. She states that she has had some dysuria over the last couple of days. She denies any fever or chills. TRAVEL OUTSIDE OF THE [place] IN LAST 30 DAYS: No - HPI Onset: Other - 3 days Onset/Duration: Sudden Quality of pain: No pain Severity: None Pain Level: Denies Associated symptoms: None Exacerbated by: Denies Relieved by: Denies Similar symptoms previously: No Recently seen / treated by doctor: No - Related Data Allergies/Adverse Reactions: No Known Allergies Allergy (Verified 11/19/17 14:52) Past Medical History - General Information source: Patient - Social History Smoking Status: Never Smoker Family History: Reviewed & Not Pertinent, Hypertension - Past Medical History Cardiac Medical History: Reports: Hx Hypercholesterolemia, Hx Hypertension Denies: Hx Heart Attack Pulmonary Medical History: Denies: Hx Asthma Neurological Medical History: Reports: Hx Migraine. Denies: Hx Cerebrovascular Accident, Hx Seizures Renal/ Medical History: Denies: Hx Peritoneal Dialysis GI Medical History: Reports: Hx Gastroesophageal Reflux Disease, Hx Hiatal Hernia, Hx Ulcer - BLEEDING ULCER. Denies: Hx Hepatitis Psychiatric Medical History: Reports: Hx Anxiety, Hx Depression Infectious Medical History: Denies: Hx Hepatitis Past Surgical History: Reports: Hx Cholecystectomy, Hx Kidney (Renal Surgery) - kidney transplant, Hx Tubal Ligation. Denies: Hx Mastectomy, Hx Open Heart Surgery, Hx Pacemaker - Immunizations Immunizations up to date: Yes Hx Diphtheria, Pertussis, Tetanus Vaccination: No Hx Pneumococcal Vaccination: 05/22/13 Review of Systems - Review of Systems Constitutional: No symptoms reported EENT: No symptoms reported Cardiovascular: No symptoms reported Respiratory: No symptoms reported Gastrointestinal: No symptoms reported Genitourinary: Dysuria Female Genitourinary: No symptoms reported Musculoskeletal: No symptoms reported Skin: No symptoms reported Hematologic/Lymphatic: No symptoms reported Neurological/Psychological: Weakness, Speech impairment -: Yes All other systems reviewed and negative Physical Exam - Vital signs Vitals: Temp Resp Pulse Ox 99.0 F 16 99 11/19/17 14:22 11/19/17 14:22 11/19/17 14:22 Interpretation: Normal - Notes Notes: PHYSICAL EXAMINATION: GENERAL: Well-appearing, well-nourished and in no acute distress. HEAD: Atraumatic, normocephalic. EYES: Pupils equal round and reactive to light, extraocular movements intact, conjunctiva are normal. ENT: Nares patent, oropharynx clear without exudates. Moist mucous membranes. NECK: Normal range of motion, supple without lymphadenopathy LUNGS: Breath sounds clear to auscultation bilaterally and equal. No wheezes rales or rhonchi. HEART: Regular rate and rhythm without murmurs ABDOMEN: Soft, nontender, nondistended abdomen. No guarding, no rebound. No masses appreciated. Female : deferred Musculoskeletal: Normal range of motion, no pitting or edema. No cyanosis. NEUROLOGICAL: Right sided facial droop. Right lower leg weakness 3/5, Dysarthria. No sensory deficit. Normal finger to nose test. PSYCH: Normal mood, normal affect. SKIN: Warm, Dry, normal turgor, no rashes or lesions noted. Course - Re-evaluation Re-evalutation: 11/19/17 14:53 NIH score 4. Patient not a TPA candidate as this has been ongoing for 3 days. 11/19/17 16:22 Labs and imaging obtained. CT head does not show an acute process. Labs are remarkable for elevated creatinine. Patient does have a history of renal failure. I discussed results with the patient. I will admit to hospitalist for CVA. Patient agreeable with admission. - Vital Signs Vital signs: Temp Pulse Resp BP Pulse Ox 99.0 F 69 16 145/70 H 97 11/19/17 14:22 11/19/17 14:25 11/19/17 16:16 11/19/17 16:16 11/19/17 16:16 - Laboratory Result Diagrams: 11/19/17 14:24 11/19/17 14:24 Laboratory results interpreted by me: 11/19/17 11/19/1711/19/18 14:24 14:24 15:07 RBC 3.33 L Hgb 10.8 L Hct 31.5 L Seg Neutrophils % 88.2 H Lymphocytes % 6.6 L Absolute Lymphocytes 0.4 L Sodium 135.7 L Potassium 5.2 H BUN 39 H Creatinine 2.62 H Est GFR ( Amer) 22 L Est GFR (Non-Af Amer) 18 L Glucose 157 H Urine Protein >=500 H - EKG Interpretation by Me Additional EKG results interpreted by me: 11/19/17 15:05 EKG: Ventricular rate 64, NJ interval 164, castration 138, QTc 475, sinus rhythm , left bundle branch block. Discharge - Discharge Clinical Impression: CVA (cerebral vascular accident) Qualifiers: CVA mechanism: unspecified Qualified Code(s): I63.9 - Cerebral infarction, unspecified Chronic renal failure Qualifiers: Chronic kidney disease stage: unspecified stage Qualified Code(s): N18.9 - Chronic kidney disease, unspecified Condition: Good Disposition: ADMITTED OBSERVATION Admitting Provider: Hospitalist Unit Admitted: Telemetry Referrals: Jean Pierre SHAH MD [Primary Care Provider] - Follow up as needed
[2017-11-19 14:51] LABS: ABSOLUTE LYMPHOCYTES (AUTO) 0.4 10^3/uL (0.5-4.7); ABSOLUTE MONOCYTES (AUTO) 0.3 10^3/uL (0.1-1.4); BASOPHILS % (AUTO) 0.6 % (0-2); EOSINOPHILS % (AUTO) 0.2 % (0-6); HEMATOCRIT 31.5 % (36.0-47.0); HEMOGLOBIN 10.8 g/dL (12.0-15.5); LYMPHOCYTES % (AUTO) 6.6 % (13-45); MEAN CORPUSCULAR HEMOGLOBIN 32.4 pg (27.0-33.4); MEAN CORPUSCULAR HGB CONC 34.2 g/dL (32.0-36.0); MEAN CORPUSCULAR VOLUME 95 fl (80-97); MONOCYTES % (AUTO) 4.4 % (3-13); PLATELET COUNT 197 10^3/uL (150-450); RED BLOOD COUNT 3.33 10^6/uL (3.72-5.28); RED CELL DISTRIBUTION WIDTH 13.7 % (11.5-14.0); SEGMENTED NEUTROPHILS % (AUTO) 88.2 % (42-78); TOTAL CELLS COUNTED % (AUTO) 100 %; WHITE BLOOD COUNT 5.7 10^3/uL (4.0-10.5)
[2017-11-19 14:56] LABS: INTERNATIONAL RATION (INR) 0.94; PROTHROMBIN TIME 13.1 SEC (11.4-15.4)
[2017-11-19 14:57] LABS: PARTIAL THROMBOPLASTIN TIME 28.9 SEC (23.5-35.8)
[2017-11-19 15:18] LABS: ALANINE AMINOTRANSFERASE 16 U/L (9-52); ALKALINE PHOSPHATASE 50 U/L (38-126); ANION GAP 9 (5-19); ASPARTATE AMINO TRANSFERASE 22 U/L (14-36); BILIRUBIN,DIRECT 0.3 mg/dL (0.0-0.4); BILIRUBIN,TOTAL 0.8 mg/dL (0.2-1.3); BLOOD UREA NITROGEN 39 mg/dL (7-20); CALCIUM 9.6 mg/dL (8.4-10.2); CARBON DIOXIDE 23 mmol/L (22-30); CHLORIDE 104 mmol/L (98-107); GLUCOSE 157 mg/dL (75-110); POTASSIUM 5.2 mmol/L (3.6-5.0); SODIUM 135.7 mmol/L (137-145); TOTAL PROTEIN 6.5 g/dL (6.3-8.2)
--- NOTE | 2017-11-19 15:25 | RADIOLOGY REPORT (SQ) ---
EXAM DESCRIPTION: CT HEAD WITHOUT COMPLETED DATE/TIME: 11/19/2017 2:53 pm REASON FOR STUDY: stroke like symptoms COMPARISON: None. TECHNIQUE: Axial images acquired through the brain without intravenous contrast. Images reviewed wi th bone, brain and subdural windows. Additional sagittal and coronal reconstructions were generated. Images stored on PACS. All CT scanners at this facility use dose modulation, iterative reconstruction, and/or weight based d osing when appropriate to reduce radiation dose to as low as reasonably achievable (ALARA). [facility]: Dose Right [facility]: CareDose [facility]: Dose Right [facility]: Teradose 4D [facility]: Smart [employer] RADIATION DOSE: CT Rad equipment meets quality standard of care and radiation dose reduction techniq ues were employed. CTDIvol: 53.2 mGy. DLP: 1017 mGy-cm. mGy. LIMITATIONS: None. FINDINGS: VENTRICLES: Prominent. CEREBRUM: No masses. No hemorrhage. No midline shift. Areas of low density in the white matter mos t likely due to chronic micro-vascular ischemic change. No evidence for acute infarction. CEREBELLUM: No masses. No hemorrhage. No alteration of density. No evidence for acute infarction. EXTRAAXIAL SPACES: Mild age-related involutional change. No fluid collections. No masses. ORBITS AND GLOBE: No intra- or extraconal masses. Normal contour of globe without masses. CALVARIUM: No fracture. PARANASAL SINUSES: No fluid or mucosal thickening. SOFT TISSUES: No mass or hematoma. OTHER: No other significant finding. IMPRESSION: MILD CHRONIC CHANGES OF ATROPHY AND MICROVASCULAR ISCHEMIA. NO ACUTE PROCESS. EVIDENCE OF ACUTE STROKE: NO. TECHNICAL DOCUMENTATION: JOB ID: [id number] Quality ID # [id number]: Final reports with documentation of one or more dose reduction techniques (e.g., Au tomated exposure control, adjustment of the mA and/or kV according to patient size, use of iterative reconstruction technique) 2010 [employer]- All Rights Reserved Reading location - IP/workstation name: [email or web address]
--- NOTE | 2017-11-19 15:25 | RADIOLOGY REPORT (SQ) ---
EXAM DESCRIPTION: CHEST SINGLE VIEW COMPLETED DATE/TIME: 11/19/2017 2:54 pm REASON FOR STUDY: stroke COMPARISON: 07/02/2017 NUMBER OF VIEWS: One view. TECHNIQUE: Single frontal radiographic view of the chest acquired. LIMITATIONS: None. FINDINGS: LUNGS AND PLEURA: No opacities, masses or pneumothorax. No pleural effusion. MEDIASTINUM AND HILAR STRUCTURES: No masses. Contour normal. HEART AND VASCULAR STRUCTURES: Heart enlarged without failure. Normal vasculature. BONES: No acute findings. HARDWARE: None in the chest. OTHER: No other significant finding. IMPRESSION: HEART ENLARGED WITHOUT FAILURE. NO OTHER SIGNIFICANT RADIOGRAPHIC FINDING IN THE CHEST. TECHNICAL DOCUMENTATION: JOB ID: [id number] [employer]- All Rights Reserved Reading location - IP/workstation name: [email or web address]
[2017-11-19 15:38] LABS: AMORPHOUS SEDIMENT,URINE TRACE /HPF; APPEARANCE,URINE SLIGHTLY-CLOUDY; BILIRUBIN,URINE NEGATIVE (NEGATIVE); COLOR,URINE YELLOW; GLUCOSE, URINE NEGATIVE (NEGATIVE); KETONES,URINE NEGATIVE (NEGATIVE); LEUKOCYTE ESTERASE,URINE NEGATIVE (NEGATIVE); NITRITE,URINE NEGATIVE (NEGATIVE); PROTEIN,URINE >=500 mg/dL (NEGATIVE); URINE SPECIFIC GRAVITY 1.014; UROBILINOGEN,URINE NEGATIVE mg/dL (<2.0)
[2017-11-19] MEDS ORDERED: NORMAL SALINE 500 ML IV ONE (16:14)
--- NOTE | 2017-11-19 17:40 | PDOC H&P ---
History of Present Illness Admission Date/PCP: 11/19/17 16:53 K V JOSE SHAH MD History of Present Illness: CEFERINO TEIXEIRA is a 72 year old female with a history of a renal transplant who reports a 3 day history of "not feeling good." She cannot really tell me much more than that. Neither she nor her are very good historians. Her just complains constantly that "she do not do nothing, she just lays in bed all day." She has not been eating or drinking very much the last couple of days. There was some reported leg weakness in the right leg where she had very good strength in her right leg for me when I came to see her. Apparently she went to an urgent care and she was sent over here today. Her took her to the urgent care because they had gone to the [place] to eat lunch and she would not eat anything. She alternated between claiming to have and not having loss of balance. Past Medical History Cardiac Medical History: Reports: Hyperlipidema, Hypertension Denies: Myocardial Infarction Pulmonary Medical History: Denies: Asthma Neurological Medical History: Reports: Migraine Denies: Seizures GI Medical History: Reports: Gastroesophageal Reflux Disease, Hiatal Hernia Denies: Hepatitis Psychiatric Medical History: Reports: Depression Hematology: Reports: Anemia Denies: Sickle Cell Disease Past Surgical History Past Surgical History: Reports: Cholecystectomy, Tubal Ligation Denies: Amputation, Mastectomy, Pacemaker Social History Information Source: Patient Lives with: Spouse/Significant other Smoking Status: Never Smoker Frequency of Alcohol Use: None Hx Recreational Drug Use: No Hx Prescription Drug Abuse: No Family History Family History: Reviewed & Not Pertinent, Hypertension Parental Family History Reviewed: No - Noncontributory Children Family History Reviewed: NA - Noncontributory Sibling(s) Family History Reviewed.: NA - Noncontributory Medication/Allergy Home Medications: Alprazolam [Xanax 0.5 mg Tablet] 0.5 mg PO PRN PRN 03/04/15 Amlodipine Besylate 5 mg PO DAILY 03/04/15 Atorvastatin Calcium 10 mg PO QHS 03/04/15 Calcium Carbonate/Vitamin D3 [Os-Matt 250 mg with Vitamin D 125 Units] 1 tab PO DAILY 03/04/15 Ferrous Sulfate [Iron] 325 mg PO DAILY 03/04/15 Furosemide [Lasix 40 mg Tablet] 40 mg PO DAILY PRN 03/04/15 Guaifenesin [Mucinex] 600 mg PO PRN PRN 03/04/15 Lisinopril [Zestril] 10 mg PO DAILY 03/04/15 Loperamide HCl/Simethicone [Imodium Advanced Caplet] 1 tab PO PRN PRN 03/04/15 Loratadine 10 mg PO DAILY 03/04/15 Metoprolol Tartrate 12.5 mg PO BID 03/04/15 Multivitamin [Multivitamins] 1 tab PO DAILY 03/04/15 Mycophenolate Sodium [Myfortic 180 mg Tablet.dr] 2 tab PO BID 03/04/15 Omeprazole [Prilosec] 20 mg PO DAILY 03/04/15 Prednisone 5 mg PO DAILY 03/04/15 Psyllium Husk [Metamucil] 0.52 cap PO PRN PRN 03/04/15 Sertraline HCl 100 mg PO DAILY 03/04/15 Cholecalciferol (Vitamin D3) [Vitamin D3 2000 unit Tablet] 2,000 unit PO DAILY 09/16/16 Cinnamon Bark [Cinnamon Bark 500 mg Capsule] 1 cap PO DAILY PRN 09/16/16 Cranberry [Cranberry 500 mg Capsule] 500 mg PO DAILY 09/16/16 Loperamide HCl [Anti-Diarrheal] 2 mg PO ASDIR PRN 09/16/16 Omeprazole Magnesium [Prilosec Otc] 40 mg PO ASDIR PRN 09/16/16 Allergies/Adverse Reactions: No Known Allergies Allergy (Verified 11/19/17 14:52) Review of Systems All systems: reviewed and no additional remarkable complaints except as stated - 10 point review of systems was conducted with the patient and her at the bedside and was negative except as noted above in the HPI Physical Exam Vital Signs: Temp Pulse Resp BP Pulse Ox 99.0 F 69 16 144/71 H 97 11/19/17 14:22 11/19/17 14:25 11/19/17 17:00 11/19/17 16:46 11/19/17 17:00 General appearance: PRESENT: no acute distress, disheveled, well-developed, well -nourished Head exam: PRESENT: atraumatic, normocephalic Eye exam: PRESENT: conjunctiva pink, EOMI, PERRLA. ABSENT: scleral icterus Ear exam: PRESENT: normal external ear exam Mouth exam: PRESENT: moist, neck supple Throat exam: ABSENT: post pharyngeal erythema, tonsillar erythema, tonsillogmegaly Neck exam: ABSENT: carotid bruit, JVD, lymphadenopathy, thyromegaly Respiratory exam: PRESENT: clear to auscultation ayaka, unlabored. ABSENT: rales , rhonchi, tachypnea, wheezes Cardiovascular exam: PRESENT: RRR, systolic murmur - 2 out of 6 at the right upper sternal border. ABSENT: diastolic murmur, rubs Pulses: PRESENT: normal carotid pulses, normal radial pulses Vascular exam: PRESENT: normal capillary refill GI/Abdominal exam: PRESENT: normal bowel sounds, soft. ABSENT: distended, guarding, mass, organolmegaly, rebound, tenderness Extremities exam: PRESENT: full ROM. ABSENT: calf tenderness, clubbing, pedal edema Musculoskeletal exam: PRESENT: normal inspection. ABSENT: deformity Neurological exam: PRESENT: alert, awake, oriented to person, oriented to place , oriented to time, CN II-XII grossly intact. ABSENT: motor sensory deficit Skin exam: PRESENT: dry, warm Results Laboratory Results: Reviewed Impressions: Chest X-Ray 11/19/17 14:34 IMPRESSION: HEART ENLARGED WITHOUT FAILURE. NO OTHER SIGNIFICANT RADIOGRAPHIC FINDING IN THE CHEST. Head CT 11/19/17 14:34 IMPRESSION: MILD CHRONIC CHANGES OF ATROPHY AND MICROVASCULAR ISCHEMIA. NO ACUTE PROCESS. EVIDENCE OF ACUTE STROKE: NO. Assessment & Plan - Diagnosis (1) Dscia-yn-mpxaooe kidney injury Qualifiers: Acute renal failure type: unspecified Chronic kidney disease stage: stage 3 (moderate) Qualified Code(s): N17.9 - Acute kidney failure, unspecified; N18.3 - Chronic kidney disease, stage 3 (moderate); N18.3 - Chronic kidney disease, stage 3 (moderate); N18.3 - Chronic kidney disease, stage 3 (moderate) Is this a current diagnosis for this admission?: Yes Plan: This is the only definite thing with objective findings that I have on this lady. She does have a history of a renal transplant. I am going to hydrate her and try to keep her on her transplant medications. She does not know what they are and she is going to send her home to get all of her medications so that we can get them ordered for her. We will check her creatinine tomorrow. If she has deterioration of her renal function she may need to be transferred to [place] where she had her transplant surgery about 5 years ago. (2) Loss of balance Is this a current diagnosis for this admission?: Yes Plan: I am uncertain if she actually had this or not because she is a very difficult historian. I am going to get an MRI of the brain without contrast just to make sure to rule out any intracranial pathology. (3) History of renal transplant Is this a current diagnosis for this admission?: Yes Plan: As above. - Time Time Spent: 50 to 70 Minutes Medications reviewed and adjusted accordingly: Yes - Inpatient Certification Medical Necessity: Significant Comorbidiites Make Outpatient Treatment Too Risky , Need For IV Fluids
--- NOTE | 2017-11-19 18:24 | RADIOLOGY REPORT (SQ) ---
EXAM DESCRIPTION: MRI HEAD WITHOUT COMPLETED DATE/TIME: 11/19/2017 6:15 pm REASON FOR STUDY: loss of balance COMPARISON: CT 11/19/2017 TECHNIQUE: Multiplanar imaging includes non-contrasted T1, T2, FLAIR, and diffusion with ADC map seq uences. Images stored on PACS. LIMITATIONS: None. FINDINGS: ANATOMY: No anomalies. Normal vascular flow voids. Pituitary fossa normal. CSF SPACES: Atrophy induced prominence of ventricles and CSF spaces. CEREBRUM: High signal intensity lesions scattered throughout the white matter on FLAIR imaging with d istribution suggesting micro-vascular ischemic changes. No evidence of hemorrhage, mass, or extraaxi al fluid collection. POSTERIOR FOSSA: No signal alteration. No hemorrhage. No edema, masses or mass effect. Internal gurdeep tory canals, cerebello-pontine angles, mastoids normal. DIFFUSION IMAGING: Restricted diffusion left parietal white matter ORBITS: No masses. Globes normal. PARANASAL SINUSES: No fluid levels. Mucosa normal. OTHER: No other significant finding. IMPRESSION: Acute infarction involving the left parietal white matter. Marked atrophy and microvascular ischemia. EVIDENCE OF ACUTE STROKE: Yes LEFT MCA TECHNICAL DOCUMENTATION: JOB ID: [id number]- All Rights Reserved Reading location - IP/workstation name: [email or web address]
[2017-11-19] MEDS: RINGERS SOLUTION,LACTATED 1,000 ML IV PRN (18:32)
[2017-11-19 18:35] LABS: FREE T4 (FREE THYROXINE) 1.15 ng/dL (0.78-2.19)
[2017-11-19 18:49] LABS: THYROID STIMULATING HORMONE 5.16 uIU/mL (0.47-4.68)
--- NOTE | 2017-11-19 19:07 | EKG REPORT ---
SEVERITY:- ABNORMAL ECG - SINUS RHYTHM LEFT BUNDLE BRANCH BLOCK : Confirmed by: Gertrude Hodges MD 19-Nov-2017 19:06:47
[2017-11-19] MEDS: HEPARIN SOD (PORCINE) 5,000 UNIT/ML 1 ML SYRINGE SUBCUT SCH (21:08)
[2017-11-20] MEDS ORDERED: ALPRAZOLAM 0.5 MG TABLET PO PRN ×2 (01:34→12:55)
[2017-11-20] MEDS ORDERED: ASPIRIN 325 MG TABLET PO ONE (03:07)
[2017-11-20] MEDS: HEPARIN SOD (PORCINE) 5,000 UNIT/ML 1 ML SYRINGE SUBCUT SCH ×3 (05:33→21:51)
[2017-11-20 06:47] LABS: HEMATOCRIT 26.2 % (36.0-47.0); HEMOGLOBIN 8.9 g/dL (12.0-15.5); MEAN CORPUSCULAR HEMOGLOBIN 31.9 pg (27.0-33.4); MEAN CORPUSCULAR VOLUME 94 fl (80-97); PLATELET COUNT 152 10^3/uL (150-450); WHITE BLOOD COUNT 3.4 10^3/uL (4.0-10.5)
[2017-11-20 07:12] LABS: ANION GAP 9 (5-19); BLOOD UREA NITROGEN 33 mg/dL (7-20); CALCIUM 9.3 mg/dL (8.4-10.2); CARBON DIOXIDE 22 mmol/L (22-30); CHLORIDE 106 mmol/L (98-107); GLUCOSE 84 mg/dL (75-110); PHOSPHORUS 3.9 mg/dL (2.5-4.5); POTASSIUM 4.6 mmol/L (3.6-5.0)
[2017-11-20] MEDS: RINGERS SOLUTION,LACTATED 1,000 ML IV PRN ×2 (08:14→22:00)
[2017-11-20] MEDS ORDERED: ALPRAZOLAM 0.5 MG TABLET PO SCH (10:00)
[2017-11-20] MEDS ORDERED: METOPROLOL TARTRATE 25 MG TABLET PO ONE (13:30)
[2017-11-20] MEDS ORDERED: AMLODIPINE BESYLATE 10 MG TABLET PO ONE (13:30)
[2017-11-20] MEDS ORDERED: TACROLIMUS 0.75 MG PO ONE (15:00)
[2017-11-20] MEDS ORDERED: MYCOPHENOLATE SODIUM 360 MG PO ONE (15:00)
[2017-11-20] MEDS ORDERED: TACROLIMUS 1 MG PO ONE (15:00)
[2017-11-20] MEDS ORDERED: PREDNISONE 5 MG TABLET PO ONE (15:30)
--- NOTE | 2017-11-20 18:03 | PDOC PROGRESS REPORT ---
Subjective Progress Note for:: 11/20/17 Subjective:: No adverse events overnight. No new complaints. She got up and walked with a walker 150 feet with physical therapy. We got her home medication list, her medications reordered. Reason For Visit: ACUTE ON CHRONIC KIDNEY INJURY,HISTORY OF RENAL Physical Exam Vital Signs: Temp Pulse Resp BP Pulse Ox 99.8 F 73 18 168/56 H 100 11/20/17 15:51 11/20/17 15:51 11/20/17 15:51 11/20/17 15:51 11/20/17 15:51 Intake & Output 11/19/17 11/20/17 11/21/17 06:59 06:59 06:59 Intake Total 1255 504 Balance 1255 504 Weight 66.3 kg General appearance: PRESENT: no acute distress, disheveled, well-developed, well -nourished Respiratory exam: PRESENT: clear to auscultation ayaka. ABSENT: rales, rhonchi, wheezes Cardiovascular exam: PRESENT: RRR. ABSENT: diastolic murmur, rubs, systolic murmur GI/Abdominal exam: PRESENT: normal bowel sounds, soft. ABSENT: distended, guarding, mass, organolmegaly, rebound, tenderness Extremities exam: ABSENT: clubbing, pedal edema Neurological exam: PRESENT: alert, awake, oriented to person, oriented to place , oriented to time Results Laboratory Results: 11/20/17 06:35 11/20/17 06:35 11/20/17 11/20/17 06:35 06:35 WBC 3.4 L RBC 2.80 L Hgb 8.9 L Hct 26.2 L MCV 94 MCH 31.9 MCHC 34.0 RDW 14.0 Plt Count 152 Sodium 137.0 Potassium 4.6 Chloride 106 Carbon Dioxide 22 Anion Gap 9 BUN 33 H Creatinine 2.14 H Est GFR ( Amer) 27 L Est GFR (Non-Af Amer) 23 L Glucose 84 Calcium 9.3 Phosphorus 3.9 Magnesium 1.9 Impressions: Head MRI 11/19/17 00:00 IMPRESSION: Acute infarction involving the left parietal white matter. Marked atrophy and microvascular ischemia. EVIDENCE OF ACUTE STROKE: Yes LEFT MCA Chest X-Ray 11/19/17 14:34 IMPRESSION: HEART ENLARGED WITHOUT FAILURE. NO OTHER SIGNIFICANT RADIOGRAPHIC FINDING IN THE CHEST. Head CT 11/19/17 14:34 IMPRESSION: MILD CHRONIC CHANGES OF ATROPHY AND MICROVASCULAR ISCHEMIA. NO ACUTE PROCESS. EVIDENCE OF ACUTE STROKE: NO. Assessment & Plan - Diagnosis (1) [id number] kidney injury Qualifiers: Acute renal failure type: unspecified Chronic kidney disease stage: stage 3 (moderate) Qualified Code(s): N17.9 - Acute kidney failure, unspecified; N18.3 - Chronic kidney disease, stage 3 (moderate); N18.3 - Chronic kidney disease, stage 3 (moderate); N18.3 - Chronic kidney disease, stage 3 (moderate) Is this a current diagnosis for this admission?: Yes Plan: Improving with IV fluids. Will check a metabolic panel again in the morning. (2) History of renal transplant Is this a current diagnosis for this admission?: Yes Plan: Continue her home anti-rejection medication. (3) Acute ischemic left MCA stroke Is this a current diagnosis for this admission?: Yes Plan: We have got her on a full strength aspirin and a statin medication. She has been working with physical therapy, will get their recommendation. - Time Time Spent with patient: 25-34 minutes Medications reviewed and adjusted accordingly: Yes
--- NOTE | 2017-11-20 18:39 | RADIOLOGY REPORT (SQ) ---
EXAM DESCRIPTION: CAROTID DOPPLER COMPLETED DATE/TIME: 11/20/2017 3:59 pm REASON FOR STUDY: acute CVA COMPARISON: None. TECHNIQUE: Grayscale ultrasound, Doppler velocity and spectra, and color Doppler images acquired of the extra-cranial carotid and vertebral arteries. Images stored on PACS. LIMITATIONS: None. FINDINGS: RIGHT CAROTID CCA Velocities: Within normal limits. ICA Velocities Peak systolic 0.76 m/s. End diastolic 0.20 m/s. Proximal ICA/CCA peak systolic ratio 0.91. Spectra normal. No significant plaque. LEFT CAROTID CCA Velocities: Within normal limits. ICA Velocities Peak systolic 1.19 m/s. End diastolic 0.39 m/s. Proximal ICA/CCA peak systolic ratio 1.6. Spectra normal. No significant plaque. VERTEBRAL ARTERIES: Antegrade flow. Normal waveforms. SUBCLAVIAN ARTERIES: No finding. OTHER: No other significant finding. IMPRESSION: NO HEMODYNAMICALLY SIGNIFICANT STENOSIS. COMMENT: Quality ID #[id number]: Velocity criteria are extrapolated from the diameter data as defined by t he Society of Radiologists in Ultrasound Consensus Conference. Radiology 2003: 229; 340-346. TECHNICAL DOCUMENTATION: JOB ID: [id number] [employer]- All Rights Reserved Reading location - IP/workstation name: [email or web address]
[2017-11-20] MEDS: METOPROLOL TARTRATE 25 MG TABLET PO SCH (21:52)
[2017-11-20] MEDS: MYCOPHENOLATE SODIUM 360 MG PO SCH (21:54)
[2017-11-20] MEDS ORDERED: LISINOPRIL 10 MG TABLET PO SCH (22:00)
[2017-11-20] MEDS ORDERED: ATORVASTATIN CALCIUM 20 MG TABLET PO SCH (22:00)
[2017-11-20] MEDS ORDERED: (PENDING PHARMACY ID) (Mycophenolate Sodium 360 MG) PO SCH (22:00)
[2017-11-21] MEDS: HEPARIN SOD (PORCINE) 5,000 UNIT/ML 1 ML SYRINGE SUBCUT SCH ×2 (05:28→13:10)
[2017-11-21] MEDS ORDERED: LANSOPRAZOLE 15 MG TAB.RAP.DR PO SCH (06:00)
[2017-11-21 07:24] LABS: HEMATOCRIT 24.9 % (36.0-47.0); HEMOGLOBIN 8.5 g/dL (12.0-15.5); MEAN CORPUSCULAR HEMOGLOBIN 31.8 pg (27.0-33.4); MEAN CORPUSCULAR HGB CONC 34.2 g/dL (32.0-36.0); MEAN CORPUSCULAR VOLUME 93 fl (80-97); PLATELET COUNT 146 10^3/uL (150-450); RED BLOOD COUNT 2.67 10^6/uL (3.72-5.28); RED CELL DISTRIBUTION WIDTH 13.8 % (11.5-14.0); WHITE BLOOD COUNT 3.1 10^3/uL (4.0-10.5)
[2017-11-21 07:45] LABS: ANION GAP 6 (5-19); BLOOD UREA NITROGEN 26 mg/dL (7-20); CALCIUM 9.1 mg/dL (8.4-10.2); CARBON DIOXIDE 23 mmol/L (22-30); CHLORIDE 107 mmol/L (98-107); CHOLESTEROL 174.04 mg/dL (0-200); GLUCOSE 76 mg/dL (75-110); POTASSIUM 4.9 mmol/L (3.6-5.0); SODIUM 135.7 mmol/L (137-145); TRIGLYCERIDES 167 mg/dL (<150)
[2017-11-21 07:55] LABS: DIRECT LDL 95 mg/dL (<100)
[2017-11-21 07:57] LABS: VLDL CHOLESTEROL 33.4 mg/dL (10-31)
[2017-11-21] MEDS ORDERED: TACROLIMUS 1 MG PO SCH (08:00)
[2017-11-21] MEDS ORDERED: TACROLIMUS 2.5 MG PO SCH (08:00)
[2017-11-21] MEDS ORDERED: TACROLIMUS 0.75 MG PO SCH (08:00)
[2017-11-21] MEDS: METOPROLOL TARTRATE 25 MG TABLET PO SCH (09:12)
[2017-11-21] MEDS: MYCOPHENOLATE SODIUM 360 MG PO SCH (09:12)
[2017-11-21] MEDS ORDERED: FERROUS SULFATE 325 MG TABLET PO SCH (10:00)
[2017-11-21] MEDS ORDERED: PREDNISONE 5 MG TABLET PO SCH (10:00)
[2017-11-21] MEDS ORDERED: ASPIRIN 325 MG TABLET PO SCH (10:00)
[2017-11-21] MEDS ORDERED: AMLODIPINE BESYLATE 10 MG TABLET PO SCH (10:00)
[2017-11-21] MEDS ORDERED: (PENDING PHARMACY ID) (Ferrous Sulfate [Iron] 325 MG) PO SCH (10:00)
[2017-11-21] MEDS: RINGERS SOLUTION,LACTATED 1,000 ML IV PRN (10:42)
[2017-11-21 13:09] VITALS: BP 172/74
--- NOTE | 2017-11-21 17:27 | PDOC DISCHARGE SUMMARY ---
General - Admit/Disc Date/PCP Admission Date/Primary Care Provider: 11/19/17 16:53 K V JOSE SHAH MD Discharge Date: 11/21/17 - Discharge Diagnosis (1) [id number] kidney injury Is this a current diagnosis for this admission?: Yes Summary: Improved after IV fluids. (2) History of renal transplant Is this a current diagnosis for this admission?: Yes Summary: She stayed on her usual medications. (3) Acute ischemic left MCA stroke Is this a current diagnosis for this admission?: Yes Summary: She was put on an aspirin. She will continue her statin medication. She was seen and evaluated by physical therapy who thought she did well enough for them that she could go for outpatient PT with a rolling walker. She was already on 3 different medications for her blood pressure, and so I added torsemide to her regimen because she has proteinuric chronic kidney disease. - Additional Information Resuscitation Status: Full Code Discharge Diet: Cardiac, Other (Comments) Discharge Activity: Supervised Activity Prescriptions: Torsemide 10 mg PO DAILY #30 tablet Home Medications: Alprazolam [Xanax 0.5 mg Tablet] 0.5 mg PO Q12HP PRN 03/04/15 Amlodipine Besylate 10 mg PO DAILY 03/04/15 Ferrous Sulfate [Iron] 325 mg PO DAILY 03/04/15 Lisinopril [Zestril] 20 mg PO QHS 03/04/15 Metoprolol Tartrate 25 mg PO Q12 03/04/15 Mycophenolate Sodium [Myfortic 180 mg Tablet.dr] 360 mg PO Q12 03/04/15 Prednisone 5 mg PO DAILY 03/04/15 Atorvastatin Calcium [Lipitor 20 mg Tablet] 20 mg PO QHS 11/20/17 Calcium Citrate/Vitamin D3 [Calcium Cit-Vit D 315-200 Tab] 1 tab PO DAILY Cholecalciferol (Vitamin D3) [Vitamin D3 2000 unit Tablet] 2,000 unit PO DAILY 11/20/17 Cranberry Fruit Extract/Vit C [Azo Cranberry Softgel] 1 each PO DAILY 11/20/17 Multivit-Min/Iron/Folic/Lutein [Centrum Silver Women Tablet] 1 each PO DAILY 07/09 Omeprazole 20 mg PO DAILY 11/20/17 Tacrolimus [Envarsus Xr] 2.5 mg PO [id number] 11/20/17 Aspirin [Aspirin 325 mg Tablet] 325 mg PO DAILY tablet 11/21/17 Torsemide 10 mg PO DAILY #30 tablet 11/21/17 History of Present Illness History of Present Illness: CEFERINO TEIXEIRA is a 72 year old female with a history of a renal transplant who reports a 3 day history of "not feeling good." She cannot really tell me much more than that. Neither she nor her are very good historians. Her just complains constantly that "she do not do nothing, she just lays in bed all day." She has not been eating or drinking very much the last couple of days. There was some reported leg weakness in the right leg where she had very good strength in her right leg for me when I came to see her. Apparently she went to an urgent care and she was sent over here today. Her took her to the urgent care because they had gone to the [employer] to eat lunch and she would not eat anything. She alternated between claiming to have and not having loss of balance. Hospital Course Hospital Course: Her kidneys responded well to IV fluids and her creatinine trended back down to baseline over the next couple of days. MRI of the brain was obtained which showed an acute ischemic stroke. Her blood pressure medications were adjusted to include torsemide; this was chosen because of her proteinuric chronic kidney disease. She was put on aspirin and her statin was continued. She did well enough for physical therapy that they thought she could go home and do outpatient PT as long as she used a rolling walker. Her labs and examination were reassuring and she was discharged today in good condition. Physical Exam Vital Signs: Temp Pulse Resp BP Pulse Ox 99.2 F 66 13 172/74 H 97 11/21/17 13:00 11/21/17 13:00 11/21/17 13:00 11/21/17 13:00 11/21/17 13:00 Intake & Output 11/20/17 11/21/17 11/22/17 06:59 06:59 06:59 Intake Total 1255 3971 Balance 1255 3971 Weight 66.3 kg 68.9 kg General appearance: PRESENT: no acute distress, disheveled, well-developed, well -nourished Respiratory exam: PRESENT: clear to auscultation ayaka. ABSENT: rales, rhonchi, wheezes Cardiovascular exam: PRESENT: RRR. ABSENT: diastolic murmur, rubs, systolic murmur GI/Abdominal exam: PRESENT: normal bowel sounds, soft. ABSENT: distended, guarding, mass, organolmegaly, rebound, tenderness Extremities exam: PRESENT: full ROM. ABSENT: clubbing, pedal edema Musculoskeletal exam: PRESENT: ambulatory, normal inspection. ABSENT: deformity Neurological exam: PRESENT: alert, awake, oriented to person, oriented to place , oriented to time Skin exam: PRESENT: dry, warm Results Laboratory Results: 11/21/17 06:40 11/21/17 06:40 11/21/17 11/21/17 06:40 06:40 WBC 3.1 L RBC 2.67 L Hgb 8.5 L Hct 24.9 L MCV 93 MCH 31.8 MCHC 34.2 RDW 13.8 Plt Count 146 L Sodium 135.7 L Potassium 4.9 Chloride 107 Carbon Dioxide 23 Anion Gap 6 BUN 26 H Creatinine 1.77 H Est GFR ( Amer) 34 L Est GFR (Non-Af Amer) 28 L Glucose 76 Calcium 9.1 Triglycerides 167 H Cholesterol 174.04 LDL Cholesterol Direct 95 VLDL Cholesterol 33.4 H HDL Cholesterol 52 Impressions: Head MRI 11/19/17 00:00 IMPRESSION: Acute infarction involving the left parietal white matter. Marked atrophy and microvascular ischemia. EVIDENCE OF ACUTE STROKE: Yes LEFT MCA Chest X-Ray 11/19/17 14:34 IMPRESSION: HEART ENLARGED WITHOUT FAILURE. NO OTHER SIGNIFICANT RADIOGRAPHIC FINDING IN THE CHEST. Head CT 11/19/17 14:34 IMPRESSION: MILD CHRONIC CHANGES OF ATROPHY AND MICROVASCULAR ISCHEMIA. NO ACUTE PROCESS. EVIDENCE OF ACUTE STROKE: NO. Carotid Doppler Study 11/20/17 00:00 IMPRESSION: NO HEMODYNAMICALLY SIGNIFICANT STENOSIS. Qualifiers - * PATIENT BEING DISCHARGED WITH ANY OF THE FOLLOWING DIAGNOSIS: Stroke Stroke Pt being discharged on Anti-thrombolytic therapy?: Yes Stroke Pt being discharged on Anti-coagulation therapy?: No Reason(s) for not prescribing Anti-coagulation therapy:: Not indicated Stroke Pt being discharged on Statins?: Yes
== END 2017-11-21 13:30 | disposition home or self-care (01) | DRG 698 ==
LOC: ER 14:06 → EH 16:53 → OBSVTOIN 16:53 → 3S 19:30
PROVIDERS: ADMIT Internal Medicine; ATTEND Internal Medicine
DX: T86.12 Kidney transplant failure (principal); I63.512 Cerebral infarction due to unspecified occlusion or stenosis of left middle cerebral artery; N17.9 Acute kidney failure, unspecified; N18.3 Chronic kidney disease, stage 3 (moderate); Z79.899 Other long term (current) drug therapy
CPT/HCPCS: 36415; 70450; 70551; 71045; 80048; 80053; 80061; 81001; 83036; 83735; 84100; 84439; 84443; 84484; 85025; 85027; 85610; 85730; 93005; 93010; 93880; 96360; 99285; G8978-GP; G8979-GP; G8987-GO; G8988-GO; G8989-GO; J1644; J7040; J7120; J7512

== ENCOUNTER → 2017-12-13 | Outpatient (CLI) | payer MEDICARE, BC ==
[2017-12-13 14:23] LABS: HEMATOCRIT 31.6 % (36.0-47.0); HEMOGLOBIN 10.7 g/dL (12.0-15.5); MEAN CORPUSCULAR HEMOGLOBIN 32.2 pg (27.0-33.4); MEAN CORPUSCULAR HGB CONC 33.9 g/dL (32.0-36.0); MEAN CORPUSCULAR VOLUME 95 fl (80-97); PLATELET COUNT 215 10^3/uL (150-450); RED BLOOD COUNT 3.32 10^6/uL (3.72-5.28); RED CELL DISTRIBUTION WIDTH 14.9 % (11.5-14.0)
[2017-12-13 14:30] LABS: APPEARANCE,URINE CLEAR; BILIRUBIN,URINE NEGATIVE (NEGATIVE); COLOR,URINE YELLOW; GLUCOSE, URINE NEGATIVE (NEGATIVE); KETONES,URINE NEGATIVE (NEGATIVE); LEUKOCYTE ESTERASE,URINE SMALL (NEGATIVE); NITRITE,URINE NEGATIVE (NEGATIVE); PROTEIN,URINE 100 mg/dL (NEGATIVE); URINE SPECIFIC GRAVITY 1.008; UROBILINOGEN,URINE NEGATIVE mg/dL (<2.0)
[2017-12-13 14:51] LABS: ANION GAP 12 (5-19); BLOOD UREA NITROGEN 39 mg/dL (7-20); CALCIUM 9.1 mg/dL (8.4-10.2); CARBON DIOXIDE 21 mmol/L (22-30); CHLORIDE 99 mmol/L (98-107); GLUCOSE 140 mg/dL (75-110); PHOSPHORUS 4.5 mg/dL (2.5-4.5); POTASSIUM 4.3 mmol/L (3.6-5.0)
[2017-12-13 14:53] LABS: UR PRO/CREAT RATIO RESULT 1.6 mg/mg (0.0-0.2); URINE CREATININE 92.3 mg/dL (15-278); URINE PROTEIN 148.7 mg/dL (<12)
== END ==
LOC: OD 13:35
PROVIDERS: ATTEND Internal Medicine Nephrology
DX: I12.9 Hypertensive chronic kidney disease with stage 1 through stage 4 chronic kidney disease, or unspecified chronic kidney disease (principal); N18.3 Chronic kidney disease, stage 3 (moderate); Z94.0 Kidney transplant status
CPT/HCPCS: 36415; 80048; 81001; 82570; 83970; 84100; 84156; 85027

== ENCOUNTER → 2017-12-19 | Outpatient (CLI) | payer MEDICARE, BC ==
[2017-12-19 13:01] LABS: ANION GAP 12 (5-19); BLOOD UREA NITROGEN 38 mg/dL (7-20); CALCIUM 9.7 mg/dL (8.4-10.2); CARBON DIOXIDE 20 mmol/L (22-30); CHLORIDE 104 mmol/L (98-107); GLUCOSE 96 mg/dL (75-110)
== END ==
LOC: OD 11:53
PROVIDERS: ATTEND Internal Medicine Nephrology
DX: E87.1 Hypo-osmolality and hyponatremia (principal)
CPT/HCPCS: 36415; 80048

== ENCOUNTER → 2018-01-08 | Outpatient (CLI) | payer MEDICARE, BC ==
[2018-01-08 16:19] LABS: ABSOLUTE LYMPHOCYTES (AUTO) 0.4 10^3/uL (0.5-4.7); ABSOLUTE MONOCYTES (AUTO) 0.2 10^3/uL (0.1-1.4); ABSOLUTE NEUT (AUTO) 4.8 10^3/uL (1.7-8.2); BASOPHILS % (AUTO) 0.4 % (0-2); EOSINOPHILS % (AUTO) 0.1 % (0-6); HEMATOCRIT 30.9 % (36.0-47.0); HEMOGLOBIN 10.4 g/dL (12.0-15.5); LYMPHOCYTES % (AUTO) 7.1 % (13-45); MEAN CORPUSCULAR HEMOGLOBIN 31.9 pg (27.0-33.4); MEAN CORPUSCULAR HGB CONC 33.6 g/dL (32.0-36.0); MEAN CORPUSCULAR VOLUME 95 fl (80-97); MONOCYTES % (AUTO) 4.3 % (3-13); PLATELET COUNT 234 10^3/uL (150-450); RED BLOOD COUNT 3.26 10^6/uL (3.72-5.28); RED CELL DISTRIBUTION WIDTH 14.5 % (11.5-14.0); SEGMENTED NEUTROPHILS % (AUTO) 88.1 % (42-78); TOTAL CELLS COUNTED % (AUTO) 100 %; WHITE BLOOD COUNT 5.4 10^3/uL (4.0-10.5)
[2018-01-08 16:36] LABS: APPEARANCE,URINE SLIGHTLY-CLOUDY; BILIRUBIN,URINE NEGATIVE (NEGATIVE); COLOR,URINE YELLOW; GLUCOSE, URINE NEGATIVE (NEGATIVE); KETONES,URINE NEGATIVE (NEGATIVE); LEUKOCYTE ESTERASE,URINE MODERATE (NEGATIVE); NITRITE,URINE NEGATIVE (NEGATIVE); PROTEIN,URINE >=500 mg/dL (NEGATIVE); URINE SPECIFIC GRAVITY 1.013; UROBILINOGEN,URINE NEGATIVE mg/dL (<2.0)
[2018-01-08 16:39] LABS: ALANINE AMINOTRANSFERASE 40 U/L (9-52); ALBUMIN 3.9 g/dL (3.5-5.0); ALKALINE PHOSPHATASE 79 U/L (38-126); ANION GAP 14 (5-19); ASPARTATE AMINO TRANSFERASE 23 U/L (14-36); BILIRUBIN,DIRECT 0.3 mg/dL (0.0-0.4); BILIRUBIN,TOTAL 0.5 mg/dL (0.2-1.3); BLOOD UREA NITROGEN 47 mg/dL (7-20); CALCIUM 9.6 mg/dL (8.4-10.2); CARBON DIOXIDE 21 mmol/L (22-30); CHLORIDE 99 mmol/L (98-107); GLUCOSE 209 mg/dL (75-110); PHOSPHORUS 4.3 mg/dL (2.5-4.5); POTASSIUM 5.9 mmol/L (3.6-5.0); SODIUM 134.1 mmol/L (137-145); TOTAL PROTEIN 6.3 g/dL (6.3-8.2)
== END ==
LOC: OD 14:40
PROVIDERS: ATTEND Internal Medicine Nephrology
DX: N18.3 Chronic kidney disease, stage 3 (moderate) (principal); R80.9 Proteinuria, unspecified; E87.5 Hyperkalemia; D64.9 Anemia, unspecified
CPT/HCPCS: 36415; 80053; 81001; 83970; 84100; 85025

== ENCOUNTER → 2018-01-11 | Outpatient (CLI) | payer MEDICARE, BC ==
[2018-01-11 09:36] LABS: HEMATOCRIT 30.6 % (36.0-47.0); HEMOGLOBIN 10.4 g/dL (12.0-15.5); MEAN CORPUSCULAR HEMOGLOBIN 31.9 pg (27.0-33.4); MEAN CORPUSCULAR VOLUME 94 fl (80-97); PLATELET COUNT 224 10^3/uL (150-450); RED BLOOD COUNT 3.26 10^6/uL (3.72-5.28); WHITE BLOOD COUNT 6.3 10^3/uL (4.0-10.5)
[2018-01-11 09:57] LABS: ANION GAP 10 (5-19); BLOOD UREA NITROGEN 42 mg/dL (7-20); CALCIUM 9.9 mg/dL (8.4-10.2); CARBON DIOXIDE 24 mmol/L (22-30); CHLORIDE 106 mmol/L (98-107); GLUCOSE 98 mg/dL (75-110); POTASSIUM 4.8 mmol/L (3.6-5.0); SODIUM 140.4 mmol/L (137-145)
[2018-01-11 10:01] LABS: APPEARANCE,URINE CLOUDY; BILIRUBIN,URINE NEGATIVE (NEGATIVE); COLOR,URINE YELLOW; GLUCOSE, URINE NEGATIVE (NEGATIVE); KETONES,URINE NEGATIVE (NEGATIVE); LEUKOCYTE ESTERASE,URINE LARGE (NEGATIVE); NITRITE,URINE NEGATIVE (NEGATIVE); PROTEIN,URINE >=500 mg/dL (NEGATIVE); URINE SPECIFIC GRAVITY 1.015; UROBILINOGEN,URINE NEGATIVE mg/dL (<2.0)
[2018-01-11 10:30] LABS: URINE CREATININE 202.6 mg/dL (15-278)
[2018-01-11 11:28] LABS: URINE PROTEIN 574.2 mg/dL (<12)
== END ==
LOC: OD 08:44
PROVIDERS: ATTEND Internal Medicine Hypertension Specialist
DX: E87.5 Hyperkalemia (principal); I10 Essential (primary) hypertension; R80.8 Other proteinuria; Z94.0 Kidney transplant status
CPT/HCPCS: 36415; 80048; 80197; 81001; 82570; 84132; 84156; 85027

== ENCOUNTER 2018-01-15 09:54 | Inpatient (IN) | payer MEDICARE, BC ==
[2018-01-15] MEDS ORDERED: ACETAMINOPHEN 325 MG TABLET PO ONE (10:02)
[2018-01-15] MEDS ORDERED: NORMAL SALINE 1000 ML 1,000 ML IV ONE (10:11)
--- NOTE | 2018-01-15 10:11 | ER Document Report ---
ED General - General Mode of Arrival: Ambulatory Information source: Patient TRAVEL OUTSIDE OF THE [place] IN LAST 30 DAYS: No <RENATA VIDAL - Last Filed: 01/15/18 10:23> <JORDAN BATES - Last Filed: 01/15/18 14:14> - General Stated Complaint: FEVER, ABNORMAL LABS Time Seen by Provider: 01/15/18 10:00 Notes: Patient is a 72 year old female with HTN, high cholesterol, GERD and history of a right kidney transplant (approximately 2012) presents to the emergency department from doctors office complaining of a fever and general malaise. Patient states she was going to have a bone marrow biopsy today when she was found to have a fever of greater than 102 and was sent to the emergency department. At bedside, patient only complains of general malaise. Patient had urinalysis performed at another facility on January 08 which showed 33 WBC and again on January 11 which showed TNTC. Her urine sample was not cultured. (RENATA VIDAL) The first temperature recorded in the emergency room 1 hour after the patient was given Tylenol. (JORDAN BATES) - Related Data Allergies/Adverse Reactions: No Known Allergies Allergy (Verified 11/19/17 14:52) Past Medical History - General Information source: Patient - Social History Smoking Status: Never Smoker Cigarette use (# per day): No Chew tobacco use (# tins/day): No Family History: Reviewed & Not Pertinent, Hypertension - Past Medical History Cardiac Medical History: Reports: Hx Hypercholesterolemia, Hx Hypertension Neurological Medical History: Reports: Hx Migraine GI Medical History: Reports: Hx Gastroesophageal Reflux Disease, Hx Hiatal Hernia, Hx Ulcer - BLEEDING ULCER Psychiatric Medical History: Reports: Hx Anxiety, Hx Depression Past Surgical History: Reports: Hx Cholecystectomy, Hx Kidney (Renal Surgery) - kidney transplant, Hx Tubal Ligation - Immunizations Immunizations up to date: Yes Hx Diphtheria, Pertussis, Tetanus Vaccination: - UNSURE Hx Pneumococcal Vaccination: 05/22/13 <RENATA VIDAL - Last Filed: 01/15/18 10:23> Review of Systems - Review of Systems Constitutional: See HPI, Fever, Weakness EENT: No symptoms reported Cardiovascular: No symptoms reported Respiratory: No symptoms reported Gastrointestinal: No symptoms reported Genitourinary: No symptoms reported Female Genitourinary: No symptoms reported Musculoskeletal: No symptoms reported Skin: No symptoms reported Hematologic/Lymphatic: No symptoms reported Neurological/Psychological: No symptoms reported -: Yes All other systems reviewed and negative <RENATA VIDAL - Last Filed: 01/15/18 10:23> Physical Exam <RENATA VIDAL - Last Filed: 01/15/18 10:23> <JORDAN BATES - Last Filed: 01/15/18 14:14> - Vital signs Vitals: Temp 99.5 F 01/15/18 11:04 - Notes Notes: GENERAL: Alert, interacts well, appears uncomfortable. No acute distress. HEAD: Normocephalic, atraumatic. EYES: Pupils equal, round, and reactive to light. Extraocular movements intact. ENT: Oral mucosa moist, tongue midline. NECK: Full range of motion. Supple. Trachea midline. LUNGS: Clear to auscultation bilaterally, no wheezes, rales, or rhonchi. No respiratory distress. HEART:Systolic murmur. No gallops or rubs. ABDOMEN: Soft, non-tender. Non-distended. Bowel sounds present in all 4 quadrants. EXTREMITIES: Moves all 4 extremities spontaneously. NEUROLOGICAL: Alert and oriented x3. Normal speech. PSYCH: Normal affect, normal mood. SKIN: Hot to touch, dry, normal turgor. No rashes or lesions noted. (RENATA VIDAL) Course <RENATA VIDAL - Last Filed: 01/15/18 10:23> - Laboratory Result Diagrams: 01/15/18 11:07 01/15/18 11:07 - Diagnostic Test Radiology reviewed: Reports reviewed - Ultrasound shows functioning transplanted kidney with mild renal pelvis dilatation - Consults Dr. Henriquez Time consulted: 12:15 Consulted provider: will see as inpatient - Recommends the patient be hospitalized. Dr. Londono Time consulted: 14:10 Consulted provider: will come to ER <JORDAN BATES - Last Filed: 01/15/18 14:14> - Re-evaluation Re-evalutation: 01/15/18 12:35 The patient was cathed for residual after emptying her bladder, there was 35 mL' s of urine residual. (JORDAN BATES) - Vital Signs Vital signs: Temp Pulse Resp BP Pulse Ox 99.5 F 63 16 120/60 95 01/15/18 11:04 01/15/18 11:10 01/15/18 11:10 01/15/18 11:10 01/15/18 11:10 - Laboratory Laboratory results interpreted by me: 01/15/18 01/15/18 01/15/18 11:07 11:07 11:07 RBC 2.84 L Hgb 9.0 L Hct 26.6 L Seg Neuts % (Manual) 92 H Band Neutrophils % 1 L Lymphocytes % (Manual) 2 L Abs Neuts (Manual) 8.5 H Abs Lymphs (Manual) 0.2 L Sodium 132.7 L Carbon Dioxide 19 L BUN 44 H Creatinine 2.85 H Est GFR ( Amer) 20 L Est GFR (Non-Af Amer) 16 L Total Protein 5.7 L Albumin 3.1 L Urine Protein >=500 H Urine Blood SMALL H Ur Leukocyte Esterase LARGE H Discharge <RENATA VIDAL - Last Filed: 01/15/18 10:23> - Discharge Admitting Provider: Hospitalist Unit Admitted: Medical Floor <JORDAN BATES - Last Filed: 01/15/18 14:14> - Discharge Clinical Impression: Immunosuppressed status, History of renal transplant Fever Qualifiers: Fever type: unspecified Qualified Code(s): R50.9 - Fever, unspecified Urinary tract infection Qualifiers: Urinary tract infection type: site unspecified Hematuria presence: without hematuria Qualified Code(s): N39.0 - Urinary tract infection, site not specified Condition: Stable Disposition: ADMITTED INPATIENT Referrals: ALFONSO WELCH MD [Primary Care Provider] - Follow up as needed Scribe Attestation: 01/15/18 10:44 I personally performed the services described in the documentation, reviewed and edited the documentation which was dictated to the scribe in my presence, and it accurately records my words and actions. (JORDAN BATES) Scribe Documentation - Scribe Written by Cecilia:: Cecilia Parra, 01/15/2018 10:21 acting as scribe for :: Diana <RENATA VIDAL - Last Filed: 01/15/18 10:23>
[2018-01-15] MEDS ORDERED: LEVOFLOXACIN 750 MG/D5W RTU 750 MG/150 ML RTUPB IV ONE (10:17)
[2018-01-15 11:36] LABS: HEMATOCRIT 26.6 % (36.0-47.0); MEAN CORPUSCULAR HEMOGLOBIN 31.7 pg (27.0-33.4); MEAN CORPUSCULAR HGB CONC 33.8 g/dL (32.0-36.0); MEAN CORPUSCULAR VOLUME 94 fl (80-97); PLATELET COUNT 154 10^3/uL (150-450); RED BLOOD COUNT 2.84 10^6/uL (3.72-5.28); WHITE BLOOD COUNT 9.1 10^3/uL (4.0-10.5)
[2018-01-15 11:41] LABS: APPEARANCE,URINE CLOUDY; BILIRUBIN,URINE NEGATIVE (NEGATIVE); COLOR,URINE AMBER; GLUCOSE, URINE NEGATIVE (NEGATIVE); KETONES,URINE NEGATIVE (NEGATIVE); LEUKOCYTE ESTERASE,URINE LARGE (NEGATIVE); NITRITE,URINE NEGATIVE (NEGATIVE); PROTEIN,URINE >=500 mg/dL (NEGATIVE); URINE SPECIFIC GRAVITY 1.014; UROBILINOGEN,URINE NEGATIVE mg/dL (<2.0)
[2018-01-15 11:58] LABS: ALANINE AMINOTRANSFERASE 23 U/L (9-52); ALBUMIN 3.1 g/dL (3.5-5.0); ALKALINE PHOSPHATASE 46 U/L (38-126); ANION GAP 15 (5-19); ASPARTATE AMINO TRANSFERASE 23 U/L (14-36); BILIRUBIN,DIRECT 0.3 mg/dL (0.0-0.4); BILIRUBIN,TOTAL 0.9 mg/dL (0.2-1.3); BLOOD UREA NITROGEN 44 mg/dL (7-20); CALCIUM 9.2 mg/dL (8.4-10.2); CARBON DIOXIDE 19 mmol/L (22-30); CHLORIDE 99 mmol/L (98-107); GLUCOSE 101 mg/dL (75-110); POTASSIUM 4.3 mmol/L (3.6-5.0); SODIUM 132.7 mmol/L (137-145); TOTAL PROTEIN 5.7 g/dL (6.3-8.2)
[2018-01-15 11:59] LABS: ABSOLUTE LYMPHOCYTES# (MANUAL) 0.2 10^3/uL (0.5-4.7); ABSOLUTE MONOCYTES # (MANUAL) 0.5 10^3/uL (0.1-1.4); ABSOLUTE NEUTROPHILS# (MANUAL) 8.5 10^3/uL (1.7-8.2); BAND NEUTROPHILS % (MANUAL) 1 % (3-5); BASOPHILS % (MANUAL) 0 % (0-2); EOSINOPHILS % (MANUAL) 0 % (0-6); LYMPHOCYTES % (MANUAL) 2 % (13-45); MONOCYTES % (MANUAL) 5 % (3-13); SEGMENTED NEUTROPHILS % (MAN) 92 % (42-78); TOTAL CELLS COUNTED 100
[2018-01-15 12:00] LABS: OVALOCYTES SLIGHT; PLATELET COMMENT ADEQUATE; PLATELET LARGE PRESENT; POIKILOCYTOSIS SLIGHT
--- NOTE | 2018-01-15 13:12 | RADIOLOGY REPORT (SQ) ---
EXAM DESCRIPTION: DUPLEX ART/KIKE FLOW COMPLETE COMPLETED DATE/TIME: 01/15/2018 1:00 pm REASON FOR STUDY: Transplant kidney ultrasound, urosepsis COMPARISON: None. TECHNIQUE: Realtime and static grayscale images acquired. Selected color Doppler, velocities and spe ctral images recorded. LIMITATIONS: None. FINDINGS: RENAL ARTERY VELOCITIES: 51 cm/sec. Segmental artery velocity 64 cm/sec. RENAL VEIN: Color doppler flow present, patent. VELOCITY RATIO: 0.6. Normal waveforms. KIDNEY: 11.4 cm. Renal pelvis 9 mm. No perinephric fluid. Atrophic [place] right kidney. Left renal agenesis. Urinary bladder not imaged. IMPRESSION: Functioning transplanted kidney with mild dilatation of the renal pelvis. COMMENT: NORMAL RENAL ARTERY/AORTA VELOCITY RATIO IS LESS THAN OR EQUAL TO 3.5. TECHNICAL DOCUMENTATION: JOB ID: [id number]- All Rights Reserved Reading location - IP/workstation name: [email or web address]
[2018-01-15] MEDS: LEVOFLOXACIN 500 MG/D5W RTU 500 MG/100 ML RTUPB IV SCH (18:03)
[2018-01-15] MEDS ORDERED: FUROSEMIDE 40 MG TABLET PO PRN (18:56)
[2018-01-15] MEDS ORDERED: (PENDING PHARMACY ID) (Mycophenolate Sodium 360 MG) PO SCH ×2 (19:00→22:00)
--- NOTE | 2018-01-15 19:05 | PDOC H&P ---
History of Present Illness Admission Date/PCP: 01/15/18 14:36 ALFONSO WELCH MD Patient complains of: Fever History of Present Illness: CEFERINO TEIXEIRA is a 72 year old female who has history of kidney transplant 5- 6 years ago. Patient is being worked up for anemia and was scheduled for bone marrow biopsy. Urine pre-operative evaluation her vital signs showed fever and the patient also mentioned that she has been not feeling well for the past day and she felt warm. Her urinalysis was positive for leukocytes and was suspicious for urinary tract infection although she does not have any urinary symptoms whatsoever. Her creatinine was also elevated beyond her baseline today. Past Medical History Cardiac Medical History: Reports: Hyperlipidema, Hypertension Denies: Coronary Artery Disease, Myocardial Infarction Pulmonary Medical History: Denies: Asthma, Bronchitis, Chronic Obstructive Pulmonary Disease (COPD), Pneumonia Neurological Medical History: Reports: Migraine Denies: Seizures GI Medical History: Reports: Gastroesophageal Reflux Disease, Hiatal Hernia Denies: Hepatitis Musculoskeltal Medical History: Denies: Arthritis Psychiatric Medical History: Reports: Depression Hematology: Reports: Anemia Denies: Sickle Cell Disease Past Surgical History Past Surgical History: Reports: Cholecystectomy, Tubal Ligation Denies: Amputation, Mastectomy, Pacemaker Social History Smoking Status: Unknown if Ever Smoked Frequency of Alcohol Use: None Hx Recreational Drug Use: No Hx Prescription Drug Abuse: No Family History Family History: CAD, Hypertension Parental Family History Reviewed: Yes Children Family History Reviewed: Yes Sibling(s) Family History Reviewed.: Yes Medication/Allergy Home Medications: Amlodipine Besylate [Norvasc 5 mg Tablet] 10 mg PO DAILY 01/15/18 Aspirin [Aspirin EC] 81 mg PO DAILY 01/15/18 Atorvastatin Calcium [Lipitor 80 mg Tablet] 80 mg PO QHS 01/15/18 Calcitriol [Rocaltrol 0.25 Mcg Capsule] 0.25 mcg PO MOWEFR 01/15/18 Ferrous Sulfate [Feosol 325 mg Tablet] 325 mg PO BID 01/15/18 Furosemide [Lasix 20 mg Tablet] 20 mg PO DAILY@1400 01/15/18 Furosemide [Lasix 40 mg Tablet] 40 mg PO DAILYP PRN 01/15/18 Lisinopril 20 mg PO QHS 01/15/18 Metoprolol Tartrate [Lopressor 25 mg Tablet] 25 mg PO Q12 01/15/18 Mycophenolate Sodium [Myfortic 180 Mg Tablet.] 360 mg PO Q12 01/15/18 Omeprazole 20 mg PO DAILY 01/15/18 Prednisone [Deltasone 5 mg Tablet] 5 mg PO Q6AM 01/15/18 Sulfamethoxazole/Trimethoprim [Bactrim Ds Tablet] 1 each PO MOWEFR 01/15/18 Tacrolimus [Envarsus Xr] 1 mg PO Q6AM 01/15/18 Tacrolimus [Envarsus Xr] 1.5 mg PO Q6AM 01/15/18 Allergies/Adverse Reactions: No Known Allergies Allergy (Verified 11/19/17 14:52) Review of Systems All systems: reviewed and no additional remarkable complaints except as stated Physical Exam Vital Signs: Temp Pulse Resp BP Pulse Ox 99.5 F 63 16 120/60 95 01/15/18 11:04 01/15/18 11:10 01/15/18 11:10 01/15/18 11:10 01/15/18 11:10 General appearance: PRESENT: no acute distress, cooperative Head exam: PRESENT: atraumatic, normocephalic Eye exam: PRESENT: EOMI. ABSENT: conjunctival injection, nystagmus, periorbital swelling Ear exam: ABSENT: bleeding, drainage Mouth exam: PRESENT: moist, neck supple Throat exam: ABSENT: post pharyngeal erythema, tonsillar exudate Neck exam: ABSENT: lymphadenopathy, meningismus, tenderness, thyromegaly Respiratory exam: PRESENT: clear to auscultation ayaka. ABSENT: accessory muscle use, prolonged expiratory phas, rales, retraction, rhonchi Cardiovascular exam: PRESENT: RRR, +S1, +S2 Pulses: PRESENT: normal radial pulses, normal dorsalis pedis pul GI/Abdominal exam: PRESENT: normal bowel sounds. ABSENT: ascites, distended, guarding, mass Rectal exam: PRESENT: deferred Extremities exam: ABSENT: joint swelling, pedal edema Musculoskeletal exam: PRESENT: normal inspection. ABSENT: deformity Neurological exam: PRESENT: alert, altered, awake, oriented to person, oriented to place, oriented to time, oriented to situation Psychiatric exam: PRESENT: anxious. ABSENT: agitated, homicidal ideation, suicidal ideation Focused psych exam: ABSENT: catatonic, delusional, pressured speech, psychomotor agitation, restlessness Skin exam: PRESENT: intact. ABSENT: abrasion, cyanosis, erythema, jaundice Results Impressions: Renal Artery Duplex 01/15/18 10:18 IMPRESSION: Functioning transplanted kidney with mild dilatation of the renal pelvis. Assessment & Plan - Diagnosis (1) Fever Qualifiers: Fever type: unspecified Qualified Code(s): R50.9 - Fever, unspecified (3) Urinary tract infection Qualifiers: Urinary tract infection type: site unspecified Hematuria presence: without hematuria Qualified Code(s): N39.0 - Urinary tract infection, site not specified (6) Chronic renal failure Qualifiers: Chronic kidney disease stage: unspecified stage Qualified Code(s): N18.9 - Chronic kidney disease, unspecified - Plan Summary Plan Summary: Patient will be admitted to the medical floor We will start empiric IV and Levaquin Monitor blood cultures and urine cultures Monitor renal function and electrolytes Consult nephrology Hold Lasix and lisinopril start IV fluids Workup for anemia should continue outpatient, currently she does not meet criteria for transfusion
[2018-01-15] MEDS: ASPIRIN 81 MG TABLET, ENT COATED PO SCH (21:29)
[2018-01-15] MEDS: AMLODIPINE BESYLATE 5 MG TABLET PO SCH (21:32)
[2018-01-15] MEDS: FERROUS SULFATE 325 MG TABLET PO SCH (21:33)
[2018-01-15] MEDS: CALCITRIOL 0.25 MCG CAPSULE PO SCH (21:33)
[2018-01-15] MEDS ORDERED: TACROLIMUS 1.5 MG PO SCH (22:00)
[2018-01-15] MEDS ORDERED: (PENDING PHARMACY ID) (Lisinopril [Lisinopril] 20 MG) PO SCH (22:00)
[2018-01-15] MEDS ORDERED: TACROLIMUS 1 MG PO SCH (22:00)
[2018-01-16] MEDS: METOPROLOL TARTRATE 25 MG TABLET PO SCH ×4 (02:43→21:05)
[2018-01-16] MEDS: ATORVASTATIN CALCIUM 80 MG TABLET PO SCH ×2 (02:44→21:05)
[2018-01-16 05:19] LABS: HEMATOCRIT 26.3 % (36.0-47.0); MEAN CORPUSCULAR HGB CONC 34.3 g/dL (32.0-36.0); MEAN CORPUSCULAR VOLUME 94 fl (80-97); PLATELET COUNT 154 10^3/uL (150-450); RED BLOOD COUNT 2.81 10^6/uL (3.72-5.28); RED CELL DISTRIBUTION WIDTH 13.9 % (11.5-14.0); WHITE BLOOD COUNT 10.2 10^3/uL (4.0-10.5)
[2018-01-16 05:42] LABS: ALANINE AMINOTRANSFERASE 26 U/L (9-52); ALBUMIN 3.1 g/dL (3.5-5.0); ALKALINE PHOSPHATASE 49 U/L (38-126); ANION GAP 18 (5-19); ASPARTATE AMINO TRANSFERASE 27 U/L (14-36); BILIRUBIN,DIRECT 0.4 mg/dL (0.0-0.4); BILIRUBIN,TOTAL 0.6 mg/dL (0.2-1.3); BLOOD UREA NITROGEN 48 mg/dL (7-20); CALCIUM 9.3 mg/dL (8.4-10.2); CARBON DIOXIDE 17 mmol/L (22-30); CHLORIDE 101 mmol/L (98-107); GLUCOSE 105 mg/dL (75-110); PHOSPHORUS 3.9 mg/dL (2.5-4.5); POTASSIUM 4.5 mmol/L (3.6-5.0); SODIUM 135.5 mmol/L (137-145); TOTAL PROTEIN 5.6 g/dL (6.3-8.2)
[2018-01-16 05:48] LABS: ABSOLUTE LYMPHOCYTES# (MANUAL) 0.2 10^3/uL (0.5-4.7); ABSOLUTE MONOCYTES # (MANUAL) 1.1 10^3/uL (0.1-1.4); ABSOLUTE NEUTROPHILS# (MANUAL) 8.9 10^3/uL (1.7-8.2); ANISOCYTOSIS SLIGHT; BASOPHILS % (MANUAL) 0 % (0-2); EOSINOPHILS % (MANUAL) 0 % (0-6); LYMPHOCYTES % (MANUAL) 2 % (13-45); MONOCYTES % (MANUAL) 11 % (3-13); PLATELET COMMENT ADEQUATE; PLATELET LARGE PRESENT; SCHISTOCYTES SLIGHT; SEGMENTED NEUTROPHILS % (MAN) 87 % (42-78); TOTAL CELLS COUNTED 100; TOXIC GRANULATION SLIGHT
[2018-01-16] MEDS ORDERED: TACROLIMUS 1 MG PO SCH (06:00)
[2018-01-16] MEDS ORDERED: TACROLIMUS 1.5 MG PO SCH (06:00)
[2018-01-16] MEDS: PREDNISONE 5 MG TABLET PO SCH (07:01)
[2018-01-16] MEDS: LANSOPRAZOLE 15 MG TAB.RAP.DR PO SCH (07:02)
--- NOTE | 2018-01-16 09:56 | PDOC DISCHARGE SUMMARY ---
General - Admit/Disc Date/PCP Admission Date/Primary Care Provider: 01/15/18 14:36 ALFONSO WELCH MD Discharge Date: 01/16/18 - Additional Information Discharge Diet: As Tolerated Discharge Activity: Activity As Tolerated Prescriptions: Levofloxacin [Levaquin 500 mg Tablet] 500 mg PO DAILY #7 tablet Home Medications: Amlodipine Besylate [Norvasc 5 mg Tablet] 10 mg PO DAILY 01/15/18 Aspirin [Aspirin EC] 81 mg PO DAILY 01/15/18 Atorvastatin Calcium [Lipitor 80 mg Tablet] 80 mg PO QHS 01/15/18 Ferrous Sulfate [Feosol 325 mg Tablet] 325 mg PO BID 01/15/18 Furosemide [Lasix 20 mg Tablet] 20 mg PO DAILY@1400 01/15/18 Furosemide [Lasix 40 mg Tablet] 40 mg PO DAILYP PRN 01/15/18 Lisinopril 20 mg PO QHS 01/15/18 Metoprolol Tartrate [Lopressor 25 mg Tablet] 25 mg PO Q12 01/15/18 Mycophenolate Sodium [Myfortic 180 mg Tablet.dr] 360 mg PO Q12 01/15/18 Omeprazole 20 mg PO DAILY 01/15/18 Prednisone [Deltasone 5 mg Tablet] 5 mg PO Q6AM 01/15/18 Sulfamethoxazole/Trimethoprim [Bactrim Ds Tablet] 1 each PO MOWEFR 01/15/18 Tacrolimus [Envarsus Xr] 1 mg PO Q6AM 01/15/18 Tacrolimus [Envarsus Xr] 1.5 mg PO Q6AM 01/15/18 Calcitriol [Rocaltrol 0.25 mcg Capsule] 0.25 mcg PO MOWEFR capsule 01/16/18 Levofloxacin [Levaquin 500 mg Tablet] 500 mg PO DAILY #7 tablet 01/16/18 History of Present Illness History of Present Illness: CEFERINO TEIXEIRA is a 72 year old female who has history of kidney transplant 5- 6 years ago. Patient is being worked up for anemia and was scheduled for bone marrow biopsy. Urine pre-operative evaluation her vital signs showed fever and the patient also mentioned that she has been not feeling well for the past day and she felt warm. Her urinalysis was positive for leukocytes and was suspicious for urinary tract infection although she does not have any urinary symptoms whatsoever. Her creatinine was also elevated beyond her baseline today. Hospital Course Hospital Course: This patient is 72 years old with history of solitary congenital kidney and renal transplant 5-6 years ago. She presented with fever that was discovered and a preprocedure evaluation prior to her going for bone marrow biopsy for her anemia workup. She had abnormal urine analysis and was admitted for presumptive urinary tract infection. Cultures still negative. Renal function was also worsened. Creatinine on admission 2.85 and her baseline is about 1.7- 1.8. She received IV fluids and we held diuretics and DELMER inhibitor indications and her creatinine improved to 2.51. She has been afebrile throughout admission. Doppler vascular renal ultrasound shows functioning transplant kidney. Patient did not want to stay in the hospital and wanted to leave as she did not sleep well and she does not like to stay in the hospital anyway. Dr. Henriquez knows her very well and thinks she is not going to stay anyway and he is okay with her going home and he will follow up on renal function and urine culture. I will discharge the patient with Levaquin prescription for 7 days. She will follow-up with Dr. Henriquez and her kidney function will be monitored as well as her urine culture. She is able to eat and tolerate food very well. She has poor appetite but she has no nausea or vomiting. Physical Exam Vital Signs: Temp Pulse Resp BP Pulse Ox 98.9 F 88 18 146/65 H 97 01/16/18 07:54 01/16/18 07:54 01/16/18 07:54 01/16/18 07:54 01/16/18 07:54 Intake & Output 01/15/18 01/16/18 01/17/18 06:59 06:59 06:59 Intake Total 1000 Balance 1000 Weight 145 lb 11.609 oz General appearance: PRESENT: no acute distress, cooperative Head exam: PRESENT: atraumatic Eye exam: PRESENT: PERRLA. ABSENT: conjunctival injection Ear exam: ABSENT: bleeding, drainage Mouth exam: PRESENT: moist, neck supple Throat exam: ABSENT: post pharyngeal erythema Neck exam: ABSENT: meningismus, tenderness, thyromegaly Respiratory exam: PRESENT: clear to auscultation ayaka. ABSENT: accessory muscle use Cardiovascular exam: PRESENT: RRR Pulses: PRESENT: normal radial pulses GI/Abdominal exam: PRESENT: normal bowel sounds, soft. ABSENT: mass, rigid, tenderness Extremities exam: ABSENT: pedal edema Neurological exam: PRESENT: alert, altered, awake, oriented to person, oriented to place, oriented to time, oriented to situation Results Laboratory Results: 01/16/18 03:52 01/16/18 03:52 01/16/18 01/16/18 03:52 03:52 WBC 10.2 RBC 2.81 L Hgb 9.0 L Hct 26.3 L MCV 94 MCH 32.0 MCHC 34.3 RDW 13.9 Plt Count 154 Seg Neutrophils % Not Reportable Lymphocytes % Not Reportable Monocytes % Not Reportable Eosinophils % Not Reportable Basophils % Not Reportable Absolute Neutrophils Not Reportable Absolute Lymphocytes Not Reportable Absolute Monocytes Not Reportable Absolute Eosinophils Not Reportable Absolute Basophils Not Reportable Sodium 135.5 L Potassium 4.5 Chloride 101 Carbon Dioxide 17 L Anion Gap 18 BUN 48 H Creatinine 2.51 H Est GFR ( Amer) 23 L Est GFR (Non-Af Amer) 19 L Glucose 105 Calcium 9.3 Phosphorus 3.9 Magnesium 1.5 L Total Bilirubin 0.6 AST 27 ALT 26 Alkaline Phosphatase 49 Total Protein 5.6 L Albumin 3.1 L Impressions: Renal Artery Duplex 01/15/18 10:18 IMPRESSION: Functioning transplanted kidney with mild dilatation of the renal pelvis. Qualifiers - * PATIENT BEING DISCHARGED WITH ANY OF THE FOLLOWING DIAGNOSIS: No
[2018-01-16] MEDS: LISINOPRIL 10 MG TABLET PO SCH ×2 (10:18→21:06)
--- NOTE | 2018-01-16 11:14 | Progress Note ---
Provider Note Provider Note: Blood culture is positive with gram-positive cocci in clusters. We will hold discharge and started the patient on IV vancomycin that is renally dosed. Continue to monitor renal function. Follow-up final blood culture results. Discussed with the nurse. She is to inform the patient of the new plan.
[2018-01-16] MEDS ORDERED: VANCOMYCIN HCL INJ 1000 MG VIAL IV SCH (11:15)
[2018-01-16] MEDS: LEVOFLOXACIN 500 MG/D5W RTU 500 MG/100 ML RTUPB IV SCH (11:52)
[2018-01-16] MEDS: AMLODIPINE BESYLATE 5 MG TABLET PO SCH (11:53)
[2018-01-16] MEDS: ASPIRIN 81 MG TABLET, ENT COATED PO SCH (11:53)
[2018-01-16] MEDS: FERROUS SULFATE 325 MG TABLET PO SCH ×2 (11:54→18:33)
[2018-01-16] MEDS: ENOXAPARIN SODIUM INJ 30 MG/0.3 ML DISP.SYRIN SUBCUT SCH (11:54)
--- NOTE | 2018-01-16 12:59 | Physician Advisory Note ---
Physician Advisor ProgressNote .: Pursuant to the plan for Devendra Nieves, I have reviewed the medical record for this patient. Physician Advisor Statement: Thanks for the update progress note today! And nice documentation of pt's baseline Cr. Please consider documenting, if you agree: 1. "Acute Kidney Injury, likely due to ____ [dehyd/UTI? possible sepsis?]" 2. stage of Chronic Kidney Disease - (baseline GFR of 20s-30s translates to CKD stage 3-4) - Please don't forget to include a list of dx.s in each day's note. DCSummaries may require re-entry of dx.s for them to be included (?) in this Repair Report version Status: appropriate for Inpt status: 72 yo Medicare pt, immunosuppressed from chronic prednisone/tacrolimus, w/acute infxn (organism/sensitivities not yet clarified), MARILUZ that isn't back to baseline (Cr 1.7s) after 1 night of tx in a pt w/kidney transplant, appearing to have worsening metabolic acidosis since arrival, now evidence of "bacteremia" vs "possible sepsis, present on adm, due to UTI, evidenced by ARF & fever" to be considered & ruled in or out. Thanks, and welcome to [facility]! JOSIANE ([facility] Physician Advisor) Please text/call if any ?s. [phone]
[2018-01-16] MEDS ORDERED: FUROSEMIDE 20 MG TABLET PO SCH (14:00)
--- NOTE | 2018-01-16 15:18 | PDOC CONSULTATION ---
Consultation Consult Date: 01/16/18 Consult reason:: DORIAN Quinteros in the renal transplant patient History of Present Illness Admission Date/PCP: 01/15/18 14:36 ALFONSO WELCH MD History of Present Illness: CEFERINO TEIXEIRA is a 72 year old female with history of hypertension and and renal transplant on high risk medication was admitted with history of unexplained fever. She was due for bone marrow biopsy with Dr. Forrest when she was noticed to have a fever. She denies any history of fever or chills. She was sent to the ER for further evaluations revealed that she had UTI with possible pyelonephritis of the transplanted kidney. She denied any history of abdominal pains especially over the right renal transplant, fever or chills.After appropriate labs including cultures were drawn she was begun on IV antibiotics. She is feeling quite comfortable today. She says she was never really sick to begin with but for mild low-grade fever. She is insistent that she has to go home. 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 However she definitely has noncompliance with restricting herself to a proper diet Past Medical History Cardiac Medical History: Reports: Hyperlipidemia, Hypertension-primary Denies: Coronary Artery Disease, Myocardial Infarction Pulmonary Medical History: Denies: Asthma, Bronchitis, Chronic Obstructive Pulmonary Disease (COPD), Pneumonia Neurological Medical History: Reports: Migraine Denies: Seizures Renal/ Medical History: Reports: Chronic Kidney Disease Stage IV, Metabolic Acidosis, Renal Transplant GI Medical History: Reports: Gastroesophageal Reflux Disease, Hiatal Hernia Denies: Hepatitis Musculoskeltal Medical History: Denies: Arthritis Psychiatric Medical History: Reports: Depression Hematology Medical History: Reports Anemia of Chronic Kidney Disease Past Surgical History Past Surgical History: Reports: Cholecystectomy, Renal Transplant, Tubal Ligation Denies: Mastectomy, Pacemaker Social History Smoking Status: Never Smoker Frequency of Alcohol Use: None Hx Recreational Drug Use: No Drugs: None Hx Prescription Drug Abuse: No Family History Parental Family History Reviewed: Yes - Negative for ESRD Children Family History Reviewed: No Sibling(s) Family History Reviewed.: No Medication/Allergy Home Medications: Amlodipine Besylate [Norvasc 5 mg Tablet] 10 mg PO DAILY 01/15/18 Aspirin [Aspirin EC] 81 mg PO DAILY 01/15/18 Atorvastatin Calcium [Lipitor 80 mg Tablet] 80 mg PO QHS 01/15/18 Ferrous Sulfate [Feosol 325 mg Tablet] 325 mg PO BID 01/15/18 Furosemide [Lasix 20 mg Tablet] 20 mg PO DAILY@1400 01/15/18 Furosemide [Lasix 40 mg Tablet] 40 mg PO DAILYP PRN 01/15/18 Lisinopril 20 mg PO QHS 01/15/18 Metoprolol Tartrate [Lopressor 25 mg Tablet] 25 mg PO Q12 01/15/18 Mycophenolate Sodium [Myfortic 180 mg Tablet.dr] 360 mg PO Q12 01/15/18 Omeprazole 20 mg PO DAILY 01/15/18 Prednisone [Deltasone 5 mg Tablet] 5 mg PO Q6AM 01/15/18 Sulfamethoxazole/Trimethoprim [Bactrim Ds Tablet] 1 each PO MOWEFR 01/15/18 Tacrolimus [Envarsus Xr] 1 mg PO Q6AM 01/15/18 Tacrolimus [Envarsus Xr] 1.5 mg PO Q6AM 01/15/18 Calcitriol [Rocaltrol 0.25 mcg Capsule] 0.25 mcg PO MOWEFR capsule 01/16/18 Levofloxacin [Levaquin 500 mg Tablet] 500 mg PO DAILY #7 tablet 01/16/18 Allergies/Adverse Reactions: No Known Allergies Allergy (Verified 11/19/17 14:52) Review of Systems Constitutional: PRESENT: fever(s). ABSENT: fatigue, headache(s), night sweats, weakness Ears: ABSENT: hearing changes Nose, Mouth, and Throat: ABSENT: headache(s), mouth pain, sore throat Cardiovascular: ABSENT: dyspnea on exertion, edema, orthropnea, palpitations Gastrointestinal: ABSENT: abdominal pain, diarrhea, dysphagia, hematemesis, hematochezia Genitourinary: ABSENT: dysuria, hematuria Neurological: ABSENT: abnormal speech, confusion, focal weakness Hematologic/Lymphatic: ABSENT: easy bleeding, easy bruising, lymphadenopathy Physical Exam Vital Signs: Temp Pulse Resp BP Pulse Ox 99.3 F 93 18 139/63 H 98 01/16/18 11:19 01/16/18 11:19 01/16/18 11:19 01/16/18 11:19 01/16/18 11:19 Intake & Output 01/15/18 01/16/18 01/17/18 06:59 06:59 06:59 Intake Total 1000 Balance 1000 Weight 66.1 kg General appearance: PRESENT: no acute distress Eye exam: PRESENT: conjunctiva pink, EOMI, PERRLA Ear exam: PRESENT: normal external ear exam Mouth exam: PRESENT: moist, neck supple Neck exam: ABSENT: lymphadenopathy, meningismus, tenderness, thyromegaly, tracheal deviation Respiratory exam: PRESENT: clear to auscultation ayaka. ABSENT: crackles Cardiovascular exam: PRESENT: +S1, +S2 GI/Abdominal exam: PRESENT: normal bowel sounds, soft. ABSENT: distended, organomegaly, tenderness - Including over her right transplanted kidney in the right lower iliac fossa Extremities exam: ABSENT: pedal edema Neurological exam: PRESENT: alert, awake, oriented to person, oriented to place , oriented to time Skin exam: ABSENT: erythema, mottled, rash Results Laboratory Results: 01/16/18 03:52 01/16/18 03:52 01/16/18 01/16/18 03:52 03:52 WBC 10.2 RBC 2.81 L Hgb 9.0 L Hct 26.3 L MCV 94 MCH 32.0 MCHC 34.3 RDW 13.9 Plt Count 154 Seg Neutrophils % Not Reportable Lymphocytes % Not Reportable Monocytes % Not Reportable Eosinophils % Not Reportable Basophils % Not Reportable Absolute Neutrophils Not Reportable Absolute Lymphocytes Not Reportable Absolute Monocytes Not Reportable Absolute Eosinophils Not Reportable Absolute Basophils Not Reportable Sodium 135.5 L Potassium 4.5 Chloride 101 Carbon Dioxide 17 L Anion Gap 18 BUN 48 H Creatinine 2.51 H Est GFR ( Amer) 23 L Est GFR (Non-Af Amer) 19 L Glucose 105 Calcium 9.3 Phosphorus 3.9 Magnesium 1.5 L Total Bilirubin 0.6 AST 27 ALT 26 Alkaline Phosphatase 49 Total Protein 5.6 L Albumin 3.1 L Impressions: Renal Artery Duplex 01/15/18 10:18 IMPRESSION: Functioning transplanted kidney with mild dilatation of the renal pelvis. Assessment & Plan - Diagnosis (1) Immunosuppression Plan: She status post renal transplant on immunosuppressants. Continue medications as at home. (2) Urinary tract infection Qualifiers: Urinary tract infection type: site unspecified Hematuria presence: without hematuria Qualified Code(s): N39.0 - Urinary tract infection, site not specified Plan: Currently this looks like a simple cystitis with no evidence to indicate pyelonephritis of the transplanted kidney. She seems to have responded to the IV antibiotics and currently her temperature is normal. Obviously she has got MARILUZ from sepsis and UTI and since she is responding I expect the numbers to drop back to her baseline. She can be discharged from a renal point of view and then I can see her as an outpatient with labs. Discussed with patient and the hospitalist. (3) History of renal transplant Plan: On immunosuppressants as mentioned earlier. Continue the same. (4) Osmrc-an-ivwypws kidney injury Qualifiers: Acute renal failure type: unspecified Chronic kidney disease stage: stage 3 (moderate) Qualified Code(s): N17.9 - Acute kidney failure, unspecified; N18.3 - Chronic kidney disease, stage 3 (moderate); N18.3 - Chronic kidney disease, stage 3 (moderate); N18.3 - Chronic kidney disease, stage 3 (moderate) Plan: Baseline creatinine of around 1.6-2. She is got MARILUZ from UTI and possible sepsis leading her to a worsening of her CKD. Patient seems apparently responding to the antibiotics. (5) CVA (cerebral vascular accident) Qualifiers: CVA mechanism: unspecified Qualified Code(s): I63.9 - Cerebral infarction, unspecified Plan: Remote. Currently no new deficits.
[2018-01-16] MEDS: VANCOMYCIN HCL 750 MG in DEXTROSE 5%-WATER 250 ML IV SCH (15:54)
[2018-01-16] MEDS: NORMAL SALINE 1000 ML 1,000 ML IV PRN (21:15)
[2018-01-17 05:12] LABS: HEMATOCRIT 23.4 % (36.0-47.0); HEMOGLOBIN 8.2 g/dL (12.0-15.5); MEAN CORPUSCULAR HEMOGLOBIN 32.3 pg (27.0-33.4); MEAN CORPUSCULAR HGB CONC 35.1 g/dL (32.0-36.0); MEAN CORPUSCULAR VOLUME 92 fl (80-97); PLATELET COUNT 162 10^3/uL (150-450); RED BLOOD COUNT 2.54 10^6/uL (3.72-5.28); RED CELL DISTRIBUTION WIDTH 13.7 % (11.5-14.0)
[2018-01-17 05:37] LABS: ANION GAP 12 (5-19); BLOOD UREA NITROGEN 49 mg/dL (7-20); CALCIUM 8.7 mg/dL (8.4-10.2); CARBON DIOXIDE 17 mmol/L (22-30); CHLORIDE 104 mmol/L (98-107); GLUCOSE 87 mg/dL (75-110); POTASSIUM 4.1 mmol/L (3.6-5.0); SODIUM 132.6 mmol/L (137-145)
[2018-01-17] MEDS: LANSOPRAZOLE 15 MG TAB.RAP.DR PO SCH (06:00)
[2018-01-17] MEDS: PREDNISONE 5 MG TABLET PO SCH (06:00)
--- NOTE | 2018-01-17 08:25 | PDOC PROGRESS REPORT ---
Subjective Progress Note for:: 01/17/18 Subjective:: Patient has been afebrile. Discharge was held yesterday because of positive blood cultures gram-positive cocci in clusters. Urine cultures positive for gram-negative rods. She was started on IV vancomycin yesterday. She is continued on IV Levaquin. She feels better and she wants to go home today. Her renal function slightly worse with creatinine of 2.81. Reason For Visit: MARILUZ, UTI, FEVER Physical Exam Vital Signs: Temp Pulse Resp BP Pulse Ox 98.9 F 77 13 129/60 H 98 01/16/18 23:30 01/16/18 23:30 01/16/18 23:30 01/16/18 23:30 01/16/18 23:30 Intake & Output 01/16/18 01/17/18 01/18/18 06:59 06:59 06:59 Intake Total 1000 871 Balance 1000 871 Weight 145 lb 11.609 oz 146 lb 9.718 oz General appearance: PRESENT: no acute distress, well-developed, well-nourished Head exam: PRESENT: atraumatic, normocephalic Eye exam: PRESENT: conjunctiva pink, EOMI, PERRLA. ABSENT: scleral icterus Ear exam: PRESENT: normal external ear exam Mouth exam: PRESENT: moist, tongue midline Neck exam: ABSENT: carotid bruit, JVD, lymphadenopathy, thyromegaly Respiratory exam: PRESENT: clear to auscultation ayaka. ABSENT: rales, rhonchi, wheezes Cardiovascular exam: PRESENT: RRR. ABSENT: diastolic murmur, rubs, systolic murmur Pulses: PRESENT: normal dorsalis pedis pul Vascular exam: PRESENT: normal capillary refill GI/Abdominal exam: PRESENT: normal bowel sounds, soft. ABSENT: distended, guarding, mass, organolmegaly, rebound, tenderness Rectal exam: PRESENT: deferred Extremities exam: PRESENT: full ROM, other - Trace edema. ABSENT: calf tenderness, clubbing Neurological exam: PRESENT: alert, awake, oriented to person, oriented to place , oriented to time, oriented to situation, CN II-XII grossly intact. ABSENT: motor sensory deficit Psychiatric exam: PRESENT: appropriate affect, normal mood. ABSENT: homicidal ideation, suicidal ideation Skin exam: PRESENT: dry, intact, warm. ABSENT: cyanosis, rash Results Laboratory Results: 01/17/18 04:01 01/17/18 04:01 01/17/18 01/17/18 04:01 04:01 WBC 6.0 RBC 2.54 L Hgb 8.2 L Hct 23.4 L MCV 92 MCH 32.3 MCHC 35.1 RDW 13.7 Plt Count 162 Sodium 132.6 L Potassium 4.1 Chloride 104 Carbon Dioxide 17 L Anion Gap 12 BUN 49 H Creatinine 2.81 H Est GFR ( Amer) 20 L Est GFR (Non-Af Amer) 17 L Glucose 87 Calcium 8.7 Impressions: Renal Artery Duplex 01/15/18 10:18 IMPRESSION: Functioning transplanted kidney with mild dilatation of the renal pelvis. Assessment & Plan - Diagnosis (1) Fever Qualifiers: Fever type: unspecified Qualified Code(s): R50.9 - Fever, unspecified Is this a current diagnosis for this admission?: Yes (3) Urinary tract infection Qualifiers: Urinary tract infection type: site unspecified Hematuria presence: without hematuria Qualified Code(s): N39.0 - Urinary tract infection, site not specified Is this a current diagnosis for this admission?: Yes (6) Chronic renal failure Qualifiers: Chronic kidney disease stage: unspecified stage Qualified Code(s): N18.9 - Chronic kidney disease, unspecified Is this a current diagnosis for this admission?: Yes - Plan Summary Plan Summary: Discharge was held yesterday due to gram-positive cocci in clusters bacteremia Continue IV Levaquin and IV vancomycin started yesterday Monitor blood cultures and urine cultures final results Monitor renal function and electrolytes Is being followed by nephrology Continue to hold Lasix and lisinopril and continue IV fluids Workup for anemia should continue outpatient, currently she does not meet criteria for transfusion Monitor blood count
[2018-01-17] MEDS: FERROUS SULFATE 325 MG TABLET PO SCH ×2 (10:27→17:49)
[2018-01-17] MEDS: ENOXAPARIN SODIUM INJ 30 MG/0.3 ML DISP.SYRIN SUBCUT SCH (10:28)
[2018-01-17] MEDS: ASPIRIN 81 MG TABLET, ENT COATED PO SCH (10:31)
[2018-01-17] MEDS: METOPROLOL TARTRATE 25 MG TABLET PO SCH ×2 (10:31→21:34)
[2018-01-17] MEDS: LEVOFLOXACIN 250 MG TABLET PO SCH (10:31)
[2018-01-17] MEDS: AMLODIPINE BESYLATE 5 MG TABLET PO SCH (10:31)
--- NOTE | 2018-01-17 16:26 | PDOC PROGRESS REPORT ---
Subjective Progress Note for:: 01/17/18 Subjective:: Patient was seen sitting up in her bed. She about to be discharged yesterday when blood cultures came back as gram positive. Currently on levofloxacin. She denies fevers but does admit to riggers. She denies chest pain, n/v/d/c. Reason For Visit: MARILUZ, UTI, FEVER Physical Exam Vital Signs: Temp Pulse Resp BP Pulse Ox 99.3 F 72 18 125/66 98 01/17/18 12:45 01/17/18 12:45 01/17/18 12:45 01/17/18 12:45 01/17/18 12:45 Intake & Output 01/16/18 01/17/18 01/18/18 06:59 06:59 06:59 Intake Total 1000 871 Balance 1000 871 Weight 66.1 kg 66.5 kg General appearance: PRESENT: no acute distress, well-developed, well-nourished Mouth exam: PRESENT: moist, neck supple Neck exam: PRESENT: full ROM. ABSENT: JVD Respiratory exam: PRESENT: clear to auscultation ayaka. ABSENT: accessory muscle use, crackles, rales, rhonchi, wheezes Cardiovascular exam: PRESENT: RRR, +S1, +S2 GI/Abdominal exam: PRESENT: normal bowel sounds, soft. ABSENT: distended, organomegaly, tenderness - Including over her right transplanted kidney in the right lower iliac fossa Extremities exam: ABSENT: tenderness, +1 edema, +2 edema Musculoskeletal exam: PRESENT: normal inspection. ABSENT: tenderness Neurological exam: PRESENT: alert, awake, oriented to person, oriented to place , oriented to time, oriented to situation Psychiatric exam: PRESENT: appropriate affect, normal mood Skin exam: PRESENT: dry, intact, warm Results Laboratory Results: 01/17/18 04:01 01/17/18 04:01 01/17/18 01/17/18 04:01 04:01 WBC 6.0 RBC 2.54 L Hgb 8.2 L Hct 23.4 L MCV 92 MCH 32.3 MCHC 35.1 RDW 13.7 Plt Count 162 Sodium 132.6 L Potassium 4.1 Chloride 104 Carbon Dioxide 17 L Anion Gap 12 BUN 49 H Creatinine 2.81 H Est GFR ( Amer) 20 L Est GFR (Non-Af Amer) 17 L Glucose 87 Calcium 8.7 Impressions: Renal Artery Duplex 08/27/18 10:18 IMPRESSION: Functioning transplanted kidney with mild dilatation of the renal pelvis. Assessment & Plan - Diagnosis (1) MARILUZ (acute kidney injury) Plan: nonoliguric due to UTI and ATN from bacteremia; continue normal saline. On antibiotics (2) Anemia Plan: will look to began work up and pending work up patient may need procrit (3) Bacteremia Plan: on IV levofloxacin and vanc (4) Fever Qualifiers: Fever type: unspecified Qualified Code(s): R50.9 - Fever, unspecified Is this a current diagnosis for this admission?: Yes Plan: on IV levofloxacin and vanc (6) Urinary tract infection Qualifiers: Urinary tract infection type: site unspecified Hematuria presence: without hematuria Qualified Code(s): N39.0 - Urinary tract infection, site not specified Is this a current diagnosis for this admission?: Yes Plan: on levofloxacin (7) History of renal transplant Plan: patient on immunosuppressents.
[2018-01-17] MEDS: CALCITRIOL 0.25 MCG CAPSULE PO SCH (18:24)
[2018-01-17] MEDS: NORMAL SALINE 1000 ML 1,000 ML IV PRN (18:27)
[2018-01-17] MEDS: ATORVASTATIN CALCIUM 80 MG TABLET PO SCH (21:34)
[2018-01-18] MEDS: VANCOMYCIN HCL 750 MG in DEXTROSE 5%-WATER 250 ML IV SCH (01:21)
[2018-01-18 05:12] LABS: ABSOLUTE RETICS # 0.035 10^6/uL (0.028-0.122); HEMATOCRIT 26.7 % (36.0-47.0); HEMOGLOBIN 9.2 g/dL (12.0-15.5); MEAN CORPUSCULAR HEMOGLOBIN 31.7 pg (27.0-33.4); MEAN CORPUSCULAR HGB CONC 34.3 g/dL (32.0-36.0); MEAN CORPUSCULAR VOLUME 93 fl (80-97); PLATELET COUNT 218 10^3/uL (150-450); RED BLOOD COUNT 2.89 10^6/uL (3.72-5.28); RED CELL DISTRIBUTION WIDTH 13.9 % (11.5-14.0); RETICULOCYTE COUNT (AUTO) 1.21 % (0.66-2.85); WHITE BLOOD COUNT 6.9 10^3/uL (4.0-10.5)
[2018-01-18 05:24] LABS: ANION GAP 13 (5-19); BLOOD UREA NITROGEN 45 mg/dL (7-20); CARBON DIOXIDE 16 mmol/L (22-30); CHLORIDE 105 mmol/L (98-107); GLUCOSE 107 mg/dL (75-110); POTASSIUM 4.4 mmol/L (3.6-5.0); SODIUM 134.1 mmol/L (137-145)
[2018-01-18] MEDS: LANSOPRAZOLE 15 MG TAB.RAP.DR PO SCH (06:01)
[2018-01-18] MEDS: PREDNISONE 5 MG TABLET PO SCH (06:01)
[2018-01-18] MEDS: ENOXAPARIN SODIUM INJ 30 MG/0.3 ML DISP.SYRIN SUBCUT SCH (09:15)
[2018-01-18] MEDS: METOPROLOL TARTRATE 25 MG TABLET PO SCH (09:15)
[2018-01-18] MEDS: ASPIRIN 81 MG TABLET, ENT COATED PO SCH (09:15)
[2018-01-18] MEDS: LEVOFLOXACIN 250 MG TABLET PO SCH (09:15)
[2018-01-18] MEDS: FERROUS SULFATE 325 MG TABLET PO SCH (09:15)
--- NOTE | 2018-01-18 09:25 | PDOC DISCHARGE SUMMARY ---
General - Admit/Disc Date/PCP Admission Date/Primary Care Provider: 01/15/18 14:36 ALFONSO WELCH MD Discharge Date: 01/18/18 - Discharge Diagnosis (1) Fever Is this a current diagnosis for this admission?: Yes (3) Urinary tract infection Is this a current diagnosis for this admission?: Yes (6) Chronic renal failure Is this a current diagnosis for this admission?: Yes - Additional Information Discharge Diet: As Tolerated Discharge Activity: Activity As Tolerated Prescriptions: Levofloxacin [Levaquin 250 mg Tablet] 250 mg PO DAILY #5 tablet Home Medications: Amlodipine Besylate [Norvasc 5 mg Tablet] 10 mg PO DAILY 01/15/18 Aspirin [Aspirin EC] 81 mg PO DAILY 01/15/18 Atorvastatin Calcium [Lipitor 80 mg Tablet] 80 mg PO QHS 01/15/18 Ferrous Sulfate [Feosol 325 mg Tablet] 325 mg PO BID 01/15/18 Furosemide [Lasix 20 mg Tablet] 20 mg PO DAILY@1400 01/15/18 Furosemide [Lasix 40 mg Tablet] 40 mg PO DAILYP PRN 01/15/18 Lisinopril 20 mg PO QHS 01/15/18 Metoprolol Tartrate [Lopressor 25 mg Tablet] 25 mg PO Q12 01/15/18 Mycophenolate Sodium [Myfortic 180 mg Tablet.dr] 360 mg PO Q12 01/15/18 Omeprazole 20 mg PO DAILY 01/15/18 Prednisone [Deltasone 5 mg Tablet] 5 mg PO Q6AM 01/15/18 Sulfamethoxazole/Trimethoprim [Bactrim Ds Tablet] 1 each PO MOWEFR 01/15/18 Tacrolimus [Envarsus Xr] 1 mg PO Q6AM 01/15/18 Tacrolimus [Envarsus Xr] 1.5 mg PO Q6AM 01/15/18 Calcitriol [Rocaltrol 0.25 mcg Capsule] 0.25 mcg PO MOWEFR capsule 01/16/18 Levofloxacin [Levaquin 250 mg Tablet] 250 mg PO DAILY #5 tablet 01/18/18 History of Present Illness History of Present Illness: CEFERINO TEIXEIRA is a 72 year old female who has history of kidney transplant 5- 6 years ago. Patient is being worked up for anemia and was scheduled for bone marrow biopsy. Urine pre-operative evaluation her vital signs showed fever and the patient also mentioned that she has been not feeling well for the past day and she felt warm. Her urinalysis was positive for leukocytes and was suspicious for urinary tract infection although she does not have any urinary symptoms whatsoever. Her creatinine was also elevated beyond her baseline today. Hospital Course Hospital Course: Please see my initial discharge summary done on January 16 Patient was held because of her positive blood cultures She was started on IV vancomycin empirically because her preliminary culture was positive for gram-positive cocci and clusters She continued to be stable, afebrile, normal white count She was actually frustrated and wanted to leave Identifying results today that shows staph hominis in 1 bottle out of the 2 This is pseudo-bacteremia and the patient is stable for discharge Her urine culture is also positive for E. coli and Klebsiella and both are sensitive to Levaquin We will discharge home on Levaquin and she should follow-up with nephrology outpatient Physical Exam Vital Signs: Temp Pulse Resp BP Pulse Ox 97.7 F 87 20 140/81 H 100 01/18/18 07:48 01/18/18 07:48 01/18/18 07:48 01/18/18 07:48 01/18/18 07:48 Intake & Output 01/17/18 01/18/18 01/19/18 06:59 06:59 06:59 Intake Total 871 3150 Balance 871 3150 Weight 146 lb 9.718 oz 147 lb 14.883 oz General appearance: PRESENT: no acute distress, well-developed, well-nourished Head exam: PRESENT: atraumatic, normocephalic Eye exam: PRESENT: conjunctiva pink, EOMI, PERRLA. ABSENT: scleral icterus Ear exam: PRESENT: normal external ear exam Mouth exam: PRESENT: moist, tongue midline Respiratory exam: PRESENT: clear to auscultation ayaka. ABSENT: rales, rhonchi, wheezes Cardiovascular exam: PRESENT: RRR. ABSENT: diastolic murmur, rubs, systolic murmur Pulses: PRESENT: normal dorsalis pedis pul GI/Abdominal exam: PRESENT: normal bowel sounds, soft. ABSENT: distended, guarding, mass, organolmegaly, rebound, tenderness Rectal exam: PRESENT: deferred Neurological exam: PRESENT: alert, awake, oriented to person, oriented to place , oriented to time, oriented to situation, CN II-XII grossly intact. ABSENT: motor sensory deficit Results Laboratory Results: 01/18/18 04:07 01/18/18 04:07 01/18/18 01/18/18 04:07 04:07 WBC 6.9 RBC 2.89 L Hgb 9.2 L Hct 26.7 L MCV 93 MCH 31.7 MCHC 34.3 RDW 13.9 Plt Count 218 Retic Count (auto) 1.21 Absolute Retic 0.035 Sodium 134.1 L Potassium 4.4 Chloride 105 Carbon Dioxide 16 L Anion Gap 13 BUN 45 H Creatinine 2.53 H Est GFR ( Amer) 23 L Est GFR (Non-Af Amer) 19 L Glucose 107 Calcium 9.0 Iron 64.0 TIBC 205 L % Saturation 31 Ferritin 437.00 H Vitamin B12 581.0 Folate 13.30 Impressions: Renal Artery Duplex 01/15/18 10:18 IMPRESSION: Functioning transplanted kidney with mild dilatation of the renal pelvis. Qualifiers - * PATIENT BEING DISCHARGED WITH ANY OF THE FOLLOWING DIAGNOSIS: No
[2018-01-18] MEDS ORDERED: AMLODIPINE BESYLATE 10 MG TABLET PO SCH (10:00)
[2018-01-18 10:58] VITALS: BP 126/56
== END 2018-01-18 11:18 | disposition home or self-care (01) | DRG 683 ==
LOC: ER 09:54 → EH 14:36 → 5 01-16 00:57
PROVIDERS: ADMIT Internal Medicine; ATTEND Internal Medicine
DX: N17.9 Acute kidney failure, unspecified (principal); Z94.0 Kidney transplant status; E87.2 Acidosis; N30.00 Acute cystitis without hematuria; B96.20 Unspecified Escherichia coli [E. coli] as the cause of diseases classified elsewhere; B96.1 Klebsiella pneumoniae [K. pneumoniae] as the cause of diseases classified elsewhere; D63.1 Anemia in chronic kidney disease; N18.4 Chronic kidney disease, stage 4 (severe); I12.9 Hypertensive chronic kidney disease with stage 1 through stage 4 chronic kidney disease, or unspecified chronic kidney disease; E78.00 Pure hypercholesterolemia, unspecified; G43.909 Migraine, unspecified, not intractable, without status migrainosus; K21.9 Gastro-esophageal reflux disease without esophagitis; K44.9 Diaphragmatic hernia without obstruction or gangrene; F32.9 Major depressive disorder, single episode, unspecified; Z79.899 Other long term (current) drug therapy; Z90.49 Acquired absence of other specified parts of digestive tract; Z79.82 Long term (current) use of aspirin; Z86.73 Personal history of transient ischemic attack (TIA), and cerebral infarction without residual deficits; Z82.49 Family history of ischemic heart disease and other diseases of the circulatory system
CPT/HCPCS: 36415; 80048; 80053; 81001; 82607; 82728; 82746; 83540; 83550; 83605; 83735; 84100; 85025; 85027; 85045; 87040; 87077; 87086; 87088; 87186; 93975; 96365; 96366; 99285; J1650; J1956; J3370; J7030; J7060; J7512

== ENCOUNTER → 2018-01-15 | Day surgery (SDC) | payer MEDICARE, BC ==
[2018-01-15 17:48] VITALS: BP 166/90
== END ==
LOC: RAD 08:38
PROVIDERS: ATTEND Internal Medicine Medical Oncology
DX: R69 Illness, unspecified (principal)

== ENCOUNTER 2018-02-19 08:42 | Day surgery (SDC) | payer MEDICARE, BC ==
[2018-02-19 09:15] LABS: HEMATOCRIT 28.7 % (36.0-47.0); HEMOGLOBIN 9.5 g/dL (12.0-15.5); MEAN CORPUSCULAR HEMOGLOBIN 31.8 pg (27.0-33.4); MEAN CORPUSCULAR HGB CONC 33.1 g/dL (32.0-36.0); MEAN CORPUSCULAR VOLUME 96 fl (80-97); PLATELET COUNT 242 10^3/uL (150-450); RED BLOOD COUNT 2.98 10^6/uL (3.72-5.28); RED CELL DISTRIBUTION WIDTH 15.5 % (11.5-14.0); WHITE BLOOD COUNT 4.7 10^3/uL (4.0-10.5)
[2018-02-19 09:19] LABS: INTERNATIONAL RATION (INR) 0.91; PROTHROMBIN TIME 12.7 SEC (11.4-15.4)
[2018-02-19 09:20] LABS: PARTIAL THROMBOPLASTIN TIME 28.6 SEC (23.5-35.8)
[2018-02-19 09:38] LABS: BLOOD UREA NITROGEN 46 mg/dL (7-20)
[2018-02-19] MEDS ORDERED: FENTANYL CITRATE INJ/PF 100 MCG/2 ML AMPUL ONE (11:01)
[2018-02-19] MEDS ORDERED: LIDOCAINE 1% INJ-PF (10 MG/ML) 30 ML SDV ONE (11:01)
[2018-02-19] MEDS ORDERED: MIDAZOLAM 2 MG/2 ML INJ ONE (11:01)
--- NOTE | 2018-02-19 13:14 | RADIOLOGY REPORT (SQ) ---
EXAM DESCRIPTION: CT BIOPSY BONE MARROW, NEEDLE; CT NEEDLE PLACEMENT COMPLETED DATE/TIME: 02/19/2018 11:46 am; 02/19/2018 11:45 am REASON FOR STUDY: MONOCLONAL GAMMOPATHY; MONOCLONAL GAMMOPATHY, BONE MARROW D47.2 MONOCLONAL GAMMOP ATHY D64.9 ANEMIA, UNSPECIFIED COMPARISON: None. TECHNIQUE: CT guided biopsy of the right iliac crest bone marrow performed with conscious sedation. CT Fluoroscopy Time: [address] scanners at this facility use dose modulation, iterative reconstruction, and/or weight based d osing when appropriate to reduce radiation dose to as low as reasonably achievable (ALARA). [facility]: Dose Right [facility]: CareDose [facility]: Dose Right [facility]: Teradose 4D [facility]: Ongo RADIATION DOSE: CT Rad equipment meets quality standard of care and radiation dose reduction techniq ues were employed. CTDIvol: 4.0 - 9.4 mGy. DLP: 174 mGy-cm.mGy. FINDINGS: After obtaining informed consent and explaining the risks and benefits of conscious sedati on,the patient agreed to the procedure. Prior to the procedure, a time out was performed to verify th e patient's identity and planned procedure. IV conscious sedation was administered and physician direction by the registered nurse using 2 millig princess of Versed and 100 micrograms of fentanyl. Physiologic monitoring was provided before, during, an d after sedation. The total sedation time was 30 minutes. Documentation face to face time, the performing proceduralist, spent monitoring the patient: [address] scanning was performed to localize the percutaneous site for the biopsy approach. After sterile skin prep and local lidocaine for skin and deep tissue anesthesia, a coaxial biopsy nee dle was used to obtain a bone marrow aspirate, and a bone marrow core of tissue. The biopsy tissue wa s received by [facility] lab to be sent out for evaluation. There were no immediate complications. Pathology is pending at the time of dictation. IMPRESSION: CT GUIDED ASPIRATE AND CORE BIOPSY OF THE RIGHT POSTERIOR ILIAC CREST BONE MARROWE PERFO RMED WITHOUT IMMEDIATE COMPLICATION. PATHOLOGY PENDING. IV CONSCIOUS SEDATION WITHOUT COMPLICATION. COMMENT: Quality ID [id number]: Final reports for procedures using fluoroscopy that document radiation exp osure indices, or exposure time and number of fluorographic images (if radiation exposure indices are not available) Patient medication list reviewed: Yes- Quality ID# [id number]:Eligible professional attests to documenting i n the medical record they obtained, updated, or reviewed the patient's current medications.. TECHNICAL DOCUMENTATION: JOB ID: [id number] Quality ID# [id number]: Final reports with documentation of one or more dose reduction techniques (e.g., Aut omated exposure control, adjustment of the mA and/or kV according to patient size, use of iterative r econstruction technique) 2010 [x+1]- All Rights Reserved Reading location - IP/workstation name: [facility]
--- NOTE | 2018-02-19 13:14 | RADIOLOGY REPORT (SQ) ---
EXAM DESCRIPTION: CT BIOPSY BONE MARROW, NEEDLE; CT NEEDLE PLACEMENT COMPLETED DATE/TIME: 02/19/2018 11:46 am; 02/19/2018 11:45 am REASON FOR STUDY: MONOCLONAL GAMMOPATHY; MONOCLONAL GAMMOPATHY, BONE MARROW D47.2 MONOCLONAL GAMMOP ATHY D64.9 ANEMIA, UNSPECIFIED COMPARISON: None. TECHNIQUE: CT guided biopsy of the right iliac crest bone marrow performed with conscious sedation. CT Fluoroscopy Time: [address] scanners at this facility use dose modulation, iterative reconstruction, and/or weight based d osing when appropriate to reduce radiation dose to as low as reasonably achievable (ALARA). [facility]: Dose Right [facility]: CareDose [facility]: Dose Right [facility]: Teradose 4D [facility]: [employer] RADIATION DOSE: CT Rad equipment meets quality standard of care and radiation dose reduction techniq ues were employed. CTDIvol: 4.0 - 9.4 mGy. DLP: 174 mGy-cm.mGy. FINDINGS: After obtaining informed consent and explaining the risks and benefits of conscious sedati on,the patient agreed to the procedure. Prior to the procedure, a time out was performed to verify th e patient's identity and planned procedure. IV conscious sedation was administered and physician direction by the registered nurse using 2 millig princess of Versed and 100 micrograms of fentanyl. Physiologic monitoring was provided before, during, an d after sedation. The total sedation time was 30 minutes. Documentation face to face time, the performing proceduralist, spent monitoring the patient: [address] scanning was performed to localize the percutaneous site for the biopsy approach. After sterile skin prep and local lidocaine for skin and deep tissue anesthesia, a coaxial biopsy nee dle was used to obtain a bone marrow aspirate, and a bone marrow core of tissue. The biopsy tissue wa s received by [facility] lab to be sent out for evaluation. There were no immediate complications. Pathology is pending at the time of dictation. IMPRESSION: CT GUIDED ASPIRATE AND CORE BIOPSY OF THE RIGHT POSTERIOR ILIAC CREST BONE MARROWE PERFO RMED WITHOUT IMMEDIATE COMPLICATION. PATHOLOGY PENDING. IV CONSCIOUS SEDATION WITHOUT COMPLICATION. COMMENT: Quality ID 145: Final reports for procedures using fluoroscopy that document radiation exp osure indices, or exposure time and number of fluorographic images (if radiation exposure indices are not available) Patient medication list reviewed: Yes- Quality ID# [id number]:Eligible professional attests to documenting i n the medical record they obtained, updated, or reviewed the patient's current medications.. TECHNICAL DOCUMENTATION: JOB ID: [id number] Quality ID# 436: Final reports with documentation of one or more dose reduction techniques (e.g., Aut omated exposure control, adjustment of the mA and/or kV according to patient size, use of iterative r econstruction technique) 2010 [employer]- All Rights Reserved Reading location - IP/workstation name: [facility]
[2018-02-19 13:50] VITALS: BP 144/72
== END 2018-02-19 13:50 | disposition home or self-care (01) ==
LOC: RAD 08:42
PROVIDERS: ATTEND Internal Medicine Medical Oncology
DX: D47.2 Monoclonal gammopathy (principal); D64.9 Anemia, unspecified; Z94.0 Kidney transplant status
CPT/HCPCS: 36415; 84520; 82565; 85027; 85610; 85730; 38221; 77012; J2250; J3010; J3490

== ENCOUNTER → 2018-02-26 | Outpatient (CLI) | payer MEDICARE, BC ==
[2018-02-26 12:50] LABS: HEMATOCRIT 28.1 % (36.0-47.0); HEMOGLOBIN 9.5 g/dL (12.0-15.5); MEAN CORPUSCULAR HEMOGLOBIN 33.1 pg (27.0-33.4); MEAN CORPUSCULAR HGB CONC 33.9 g/dL (32.0-36.0); MEAN CORPUSCULAR VOLUME 98 fl (80-97); PLATELET COUNT 268 10^3/uL (150-450); RED BLOOD COUNT 2.88 10^6/uL (3.72-5.28); RED CELL DISTRIBUTION WIDTH 16.2 % (11.5-14.0); WHITE BLOOD COUNT 4.1 10^3/uL (4.0-10.5)
[2018-02-26 13:10] LABS: ANION GAP 8 (5-19); BLOOD UREA NITROGEN 30 mg/dL (7-20); CALCIUM 9.8 mg/dL (8.4-10.2); CARBON DIOXIDE 26 mmol/L (22-30); CHLORIDE 104 mmol/L (98-107); GLUCOSE 145 mg/dL (75-110); PHOSPHORUS 3.7 mg/dL (2.5-4.5); POTASSIUM 4.5 mmol/L (3.6-5.0); SODIUM 138.1 mmol/L (137-145)
== END ==
LOC: OD 12:11
PROVIDERS: ATTEND Internal Medicine Nephrology
DX: I12.9 Hypertensive chronic kidney disease with stage 1 through stage 4 chronic kidney disease, or unspecified chronic kidney disease (principal); N18.3 Chronic kidney disease, stage 3 (moderate)
CPT/HCPCS: 36415; 80048; 83970; 84100; 85027

== ENCOUNTER → 2018-03-29 | Day surgery (SDC) | payer MEDICARE, BC | LOC: RAD 10:09 | PROVIDERS: ATTEND Internal Medicine Medical Oncology | DX: D64.9 Anemia, unspecified (principal); R69 Illness, unspecified ==

== ENCOUNTER 2018-04-10 08:47 | Day surgery (SDC) | payer MEDICARE, BC ==
[2018-04-10 10:01] LABS: HEMATOCRIT 31.1 % (36.0-47.0); HEMOGLOBIN 10.5 g/dL (12.0-15.5); MEAN CORPUSCULAR HEMOGLOBIN 32.7 pg (27.0-33.4); MEAN CORPUSCULAR HGB CONC 33.9 g/dL (32.0-36.0); MEAN CORPUSCULAR VOLUME 97 fl (80-97); PLATELET COUNT 208 10^3/uL (150-450); RED BLOOD COUNT 3.22 10^6/uL (3.72-5.28); RED CELL DISTRIBUTION WIDTH 14.8 % (11.5-14.0); WHITE BLOOD COUNT 6.6 10^3/uL (4.0-10.5)
[2018-04-10 10:17] LABS: INTERNATIONAL RATION (INR) 0.94; PARTIAL THROMBOPLASTIN TIME 26.7 SEC (23.5-35.8); PROTHROMBIN TIME 13.1 SEC (11.4-15.4)
[2018-04-10 10:23] LABS: BLOOD UREA NITROGEN 46 mg/dL (7-20)
[2018-04-10] MEDS ORDERED: MIDAZOLAM 2 MG/2 ML INJ ONE (10:57)
[2018-04-10] MEDS ORDERED: FENTANYL CITRATE INJ/PF 100 MCG/2 ML AMPUL ONE (10:57)
[2018-04-10] MEDS ORDERED: LIDOCAINE 1% INJ-PF (10 MG/ML) 30 ML SDV ONE (10:58)
--- NOTE | 2018-04-10 12:40 | RADIOLOGY REPORT (SQ) ---
EXAM DESCRIPTION: CT BIOPSY BONE MARROW, NEEDLE; CT NEEDLE PLACEMENT COMPLETED DATE/TIME: 04/10/2018 11:48 am REASON FOR STUDY: ANEMIA, UNSPECIFIED D64.9 ANEMIA, UNSPECIFIED Z79.01 CARE HOME (CURRENT) USE OF ANTICOAGULANTS COMPARISON: None. TECHNIQUE: CT guided biopsy of the right posterior iliac crest bone marrow performed with conscious sedation. CT Fluoroscopy Time: 3.[address] scanners at this facility use dose modulation, iterative reconstruction, and/or weight based d osing when appropriate to reduce radiation dose to as low as reasonably achievable (ALARA). [facility]: Dose Right [facility]: CareDose [facility]: Dose Right [facility]: Teradose 4D [facility]: [employer] RADIATION DOSE: mGy. FINDINGS: After obtaining informed consent and explaining the risks and benefits of conscious sedati on,the patient agreed to the procedure. Prior to the procedure, a time out was performed to verify th e patient's identity and planned procedure. IV conscious sedation was administered and physician direction by the registered nurse using 2 millig princess of Versed and 75 micrograms of fentanyl. Physiologic monitoring was provided before, during, and after sedation. The total sedation time was 47 minutes. Documentation face to face time, the performing proceduralist, spent monitoring the patient: [address] scanning was performed to localize the percutaneous site for the biopsy approach. After sterile skin prep and local lidocaine for skin and deep tissue anesthesia, a coaxial biopsy nee dle was used to obtain a bone marrow aspirate, and a bone marrow core of tissue. The biopsy tissue wa s received by [facility] lab to be sent out for evaluation. There were no immediate complications. Pathology is pending at the time of dictation. IMPRESSION: CT GUIDED ASPIRATE AND CORE BIOPSY OF THE RIGHT POSTERIOR ILIAC CREST BONE MARROW PERFOR MED WITHOUT IMMEDIATE COMPLICATION. PATHOLOGY PENDING. IV CONSCIOUS SEDATION WITHOUT COMPLICATION. COMMENT: Quality ID 145: Final reports for procedures using fluoroscopy that document radiation exp osure indices, or exposure time and number of fluorographic images (if radiation exposure indices are not available) Patient medication list reviewed: Yes- Quality ID# [id number]:Eligible professional attests to documenting i n the medical record they obtained, updated, or reviewed the patient's current medications.. TECHNICAL DOCUMENTATION: JOB ID: [id number] Quality ID# 436: Final reports with documentation of one or more dose reduction techniques (e.g., Aut omated exposure control, adjustment of the mA and/or kV according to patient size, use of iterative r econstruction technique) 2010 [employer]- All Rights Reserved Reading location - IP/workstation name: [email or web address]
--- NOTE | 2018-04-10 12:40 | RADIOLOGY REPORT (SQ) ---
EXAM DESCRIPTION: CT BIOPSY BONE MARROW, NEEDLE; CT NEEDLE PLACEMENT COMPLETED DATE/TIME: 04/10/2018 11:48 am REASON FOR STUDY: ANEMIA, UNSPECIFIED D64.9 ANEMIA, UNSPECIFIED Z79.01 NURSING HOME (CURRENT) USE OF ANTICOAGULANTS COMPARISON: None. TECHNIQUE: CT guided biopsy of the right posterior iliac crest bone marrow performed with conscious sedation. CT Fluoroscopy Time: 3.[address] scanners at this facility use dose modulation, iterative reconstruction, and/or weight based d osing when appropriate to reduce radiation dose to as low as reasonably achievable (ALARA). [facility]: Dose Right [facility]: CareDose [facility]: Dose Right [facility]: Teradose 4D [facility]: [employer] RADIATION DOSE: mGy. FINDINGS: After obtaining informed consent and explaining the risks and benefits of conscious sedati on,the patient agreed to the procedure. Prior to the procedure, a time out was performed to verify th e patient's identity and planned procedure. IV conscious sedation was administered and physician direction by the registered nurse using 2 millig princess of Versed and 75 micrograms of fentanyl. Physiologic monitoring was provided before, during, and after sedation. The total sedation time was 47 minutes. Documentation face to face time, the performing proceduralist, spent monitoring the patient: [address] scanning was performed to localize the percutaneous site for the biopsy approach. After sterile skin prep and local lidocaine for skin and deep tissue anesthesia, a coaxial biopsy nee dle was used to obtain a bone marrow aspirate, and a bone marrow core of tissue. The biopsy tissue wa s received by [facility] lab to be sent out for evaluation. There were no immediate complications. Pathology is pending at the time of dictation. IMPRESSION: CT GUIDED ASPIRATE AND CORE BIOPSY OF THE RIGHT POSTERIOR ILIAC CREST BONE MARROW PERFOR MED WITHOUT IMMEDIATE COMPLICATION. PATHOLOGY PENDING. IV CONSCIOUS SEDATION WITHOUT COMPLICATION. COMMENT: Quality ID 145: Final reports for procedures using fluoroscopy that document radiation exp osure indices, or exposure time and number of fluorographic images (if radiation exposure indices are not available) Patient medication list reviewed: Yes- Quality ID# [id number]:Eligible professional attests to documenting i n the medical record they obtained, updated, or reviewed the patient's current medications.. TECHNICAL DOCUMENTATION: JOB ID: [id number] Quality ID# 436: Final reports with documentation of one or more dose reduction techniques (e.g., Aut omated exposure control, adjustment of the mA and/or kV according to patient size, use of iterative r econstruction technique) 2010 [employer]- All Rights Reserved Reading location - IP/workstation name: [facility]-[email or web address]
[2018-04-10 14:13] VITALS: BP 140/75
== END 2018-04-10 14:00 | disposition home or self-care (01) ==
LOC: RAD 08:47
PROVIDERS: ATTEND Internal Medicine Medical Oncology
DX: D64.9 Anemia, unspecified (principal); Z79.01 Long term (current) use of anticoagulants; Z94.0 Kidney transplant status
CPT/HCPCS: 36415; 84520; 82565; 85027; 85610; 85730; 38221; 77012; J2250; J3010; J3490

== ENCOUNTER → 2018-04-27 | Outpatient (CLI) | payer MEDICARE, BC ==
[2018-04-27 10:00] LABS: ALANINE AMINOTRANSFERASE 22 U/L (9-52); ALBUMIN 3.5 g/dL (3.5-5.0); ALKALINE PHOSPHATASE 71 U/L (38-126); ANION GAP 8 (5-19); ASPARTATE AMINO TRANSFERASE 20 U/L (14-36); BILIRUBIN,DIRECT 0.2 mg/dL (0.0-0.4); BILIRUBIN,TOTAL 0.7 mg/dL (0.2-1.3); BLOOD UREA NITROGEN 38 mg/dL (7-20); CALCIUM 9.5 mg/dL (8.4-10.2); CARBON DIOXIDE 25 mmol/L (22-30); CHLORIDE 106 mmol/L (98-107); CHOLESTEROL 163.68 mg/dL (0-200); GLUCOSE 91 mg/dL (75-110); POTASSIUM 4.9 mmol/L (3.6-5.0); SODIUM 139.1 mmol/L (137-145); TOTAL PROTEIN 5.8 g/dL (6.3-8.2); TRIGLYCERIDES 191 mg/dL (<150)
[2018-04-27 10:11] LABS: DIRECT LDL 82 mg/dL (<100)
[2018-04-27 10:13] LABS: VLDL CHOLESTEROL 38.2 mg/dL (10-31)
== END ==
LOC: OD 08:25
PROVIDERS: ATTEND Internal Medicine Cardiovascular Disease
DX: E78.00 Pure hypercholesterolemia, unspecified (principal); Z79.899 Other long term (current) drug therapy; I10 Essential (primary) hypertension
CPT/HCPCS: 36415; 80048; 80061; 80076

== ENCOUNTER → 2018-06-07 | Outpatient (CLI) | payer MEDICARE, BC ==
[2018-06-07 10:10] LABS: ALANINE AMINOTRANSFERASE 19 U/L (9-52); ALBUMIN 3.4 g/dL (3.5-5.0); ALKALINE PHOSPHATASE 58 U/L (38-126); ASPARTATE AMINO TRANSFERASE 16 U/L (14-36); BILIRUBIN,DIRECT 0.2 mg/dL (0.0-0.4); BILIRUBIN,TOTAL 0.7 mg/dL (0.2-1.3); CHOLESTEROL 185.71 mg/dL (0-200); CREATINE KINASE 25 U/L (30-135); TOTAL PROTEIN 5.5 g/dL (6.3-8.2); TRIGLYCERIDES 155 mg/dL (<150)
[2018-06-07 10:25] LABS: DIRECT LDL 95 mg/dL (<100)
== END ==
LOC: OD 08:37
PROVIDERS: ATTEND Internal Medicine Cardiovascular Disease
DX: E78.00 Pure hypercholesterolemia, unspecified (principal); Z79.899 Other long term (current) drug therapy
CPT/HCPCS: 36415; 80061; 80076; 82550

== ENCOUNTER → 2018-06-28 | Outpatient (CLI) | payer MEDICARE, BC ==
[2018-06-28 12:54] LABS: HEMATOCRIT 26.1 % (36.0-47.0); HEMOGLOBIN 8.5 g/dL (12.0-15.5); MEAN CORPUSCULAR HEMOGLOBIN 30.8 pg (27.0-33.4); MEAN CORPUSCULAR HGB CONC 32.7 g/dL (32.0-36.0); MEAN CORPUSCULAR VOLUME 94 fl (80-97); PLATELET COUNT 315 10^3/uL (150-450); RED BLOOD COUNT 2.76 10^6/uL (3.72-5.28); RED CELL DISTRIBUTION WIDTH 14.8 % (11.5-14.0); WHITE BLOOD COUNT 6.1 10^3/uL (4.0-10.5)
[2018-06-28 13:24] LABS: ANION GAP 6 (5-19); BLOOD UREA NITROGEN 37 mg/dL (7-20); CALCIUM 9.2 mg/dL (8.4-10.2); CARBON DIOXIDE 26 mmol/L (22-30); CHLORIDE 106 mmol/L (98-107); GLUCOSE 125 mg/dL (75-110); PHOSPHORUS 3.8 mg/dL (2.5-4.5); POTASSIUM 4.6 mmol/L (3.6-5.0); SODIUM 138.2 mmol/L (137-145)
== END ==
LOC: OD 12:23
PROVIDERS: ATTEND Internal Medicine Nephrology
DX: I12.9 Hypertensive chronic kidney disease with stage 1 through stage 4 chronic kidney disease, or unspecified chronic kidney disease (principal); N18.3 Chronic kidney disease, stage 3 (moderate)
CPT/HCPCS: 36415; 80048; 83970; 84100; 85027

== ENCOUNTER → 2018-08-21 | Outpatient (CLI) | payer MEDICARE, BC ==
[2018-08-21 09:47] LABS: ALANINE AMINOTRANSFERASE 30 U/L (9-52); ALBUMIN 3.5 g/dL (3.5-5.0); ALKALINE PHOSPHATASE 55 U/L (38-126); ASPARTATE AMINO TRANSFERASE 19 U/L (14-36); BILIRUBIN,DIRECT 0.3 mg/dL (0.0-0.4); BILIRUBIN,TOTAL 0.6 mg/dL (0.2-1.3); CHOLESTEROL 171.91 mg/dL (0-200); TOTAL PROTEIN 5.5 g/dL (6.3-8.2); TRIGLYCERIDES 124 mg/dL (<150)
[2018-08-21 09:58] LABS: DIRECT LDL 86 mg/dL (<100)
== END ==
LOC: OD 08:30
PROVIDERS: ATTEND Internal Medicine Cardiovascular Disease
DX: E78.00 Pure hypercholesterolemia, unspecified (principal); Z79.899 Other long term (current) drug therapy
CPT/HCPCS: 36415; 80061; 80076

== ENCOUNTER → 2018-09-13 | Outpatient (CLI) | payer MEDICARE, BC ==
[2018-09-13 11:06] LABS: ABSOLUTE LYMPHOCYTES (AUTO) 0.5 10^3/uL (0.5-4.7); ABSOLUTE MONOCYTES (AUTO) 0.5 10^3/uL (0.1-1.4); ABSOLUTE NEUT (AUTO) 3.2 10^3/uL (1.7-8.2); BASOPHILS % (AUTO) 0.6 % (0-2); EOSINOPHILS % (AUTO) 1.1 % (0-6); HEMATOCRIT 30.2 % (36.0-47.0); HEMOGLOBIN 10.3 g/dL (12.0-15.5); LYMPHOCYTES % (AUTO) 11.9 % (13-45); MEAN CORPUSCULAR HEMOGLOBIN 31.6 pg (27.0-33.4); MEAN CORPUSCULAR VOLUME 93 fl (80-97); MONOCYTES % (AUTO) 10.8 % (3-13); PLATELET COUNT 203 10^3/uL (150-450); RED BLOOD COUNT 3.25 10^6/uL (3.72-5.28); RED CELL DISTRIBUTION WIDTH 15.6 % (11.5-14.0); SEGMENTED NEUTROPHILS % (AUTO) 75.6 % (42-78); TOTAL CELLS COUNTED % (AUTO) 100 %; WHITE BLOOD COUNT 4.3 10^3/uL (4.0-10.5)
[2018-09-13 11:34] LABS: ALANINE AMINOTRANSFERASE 21 U/L (9-52); ALBUMIN 2.9 g/dL (3.5-5.0); ALKALINE PHOSPHATASE 46 U/L (38-126); ANION GAP 5 (5-19); ASPARTATE AMINO TRANSFERASE 19 U/L (14-36); BILIRUBIN,DIRECT 0.1 mg/dL (0.0-0.4); BILIRUBIN,TOTAL 0.9 mg/dL (0.2-1.3); BLOOD UREA NITROGEN 38 mg/dL (7-20); CALCIUM 9.3 mg/dL (8.4-10.2); CARBON DIOXIDE 23 mmol/L (22-30); CHLORIDE 109 mmol/L (98-107); GLUCOSE 96 mg/dL (75-110); PHOSPHORUS 4.2 mg/dL (2.5-4.5); POTASSIUM 4.6 mmol/L (3.6-5.0); SODIUM 136.5 mmol/L (137-145); TOTAL PROTEIN 5.2 g/dL (6.3-8.2)
[2018-09-13 12:29] LABS: APPEARANCE,URINE CLEAR; BILIRUBIN,URINE NEGATIVE (NEGATIVE); COLOR,URINE YELLOW; GLUCOSE, URINE 50 mg/dL (NEGATIVE); KETONES,URINE NEGATIVE (NEGATIVE); LEUKOCYTE ESTERASE,URINE TRACE (NEGATIVE); NITRITE,URINE NEGATIVE (NEGATIVE); PROTEIN,URINE >=500 mg/dL (NEGATIVE); URINE SPECIFIC GRAVITY 1.012; UROBILINOGEN,URINE NEGATIVE mg/dL (<2.0)
[2018-09-13 12:46] LABS: URINE CREATININE 84.5 mg/dL (15-278)
[2018-09-13 13:39] LABS: UR PRO/CREAT RATIO RESULT 1.8 mg/mg (0.0-0.2)
== END ==
LOC: OD 10:04
PROVIDERS: ATTEND Internal Medicine Nephrology
DX: I12.9 Hypertensive chronic kidney disease with stage 1 through stage 4 chronic kidney disease, or unspecified chronic kidney disease (principal); N18.4 Chronic kidney disease, stage 4 (severe); D64.9 Anemia, unspecified; R80.9 Proteinuria, unspecified; E87.5 Hyperkalemia
CPT/HCPCS: 36415; 80053; 81001; 82570; 83735; 83970; 84100; 84156; 85025